=== PATIENT | female | born 1995 | race Caucasian/White ===

== ENCOUNTER 2017-12-19 01:13 | Emergency (ER) | payer SELFPAY ==
[~2017-12-19] VITALS: Ht 160 cm; Wt 55.6 kg
[2017-12-19] MEDS ORDERED: PERM5CRE11 TOPICAL (01:29)
[2017-12-19] MEDS ORDERED: DIPH25CA PO (01:29)
--- NOTE | 2017-12-19 01:30 | PD ---
HPI Chief Complaint: Itchiness all over Time Seen by Provider: 01:24 Travel History International Travel<30 days: No Contact w/Intl Traveler<30days: No Traveled to known affect area: No History of Present Illness HPI 22-year-old female patient presents to the ER today, states that she started having several days of itchiness and which she thinks there are bugs on her clothes, states that her fianc had similar symptoms as well after he used a clipper which was in the session. They are not sure what is going on for think it is scabies. They deny any other issues. Modifying Factors: None Associated Signs & Symptoms: Itchiness all over, possible scabies Risk Factors: None PFSH Social History Tobacco Use: Yes Review of Systems Except as stated in HPI: all other systems reviewed are Neg Physical Exam Narrative GENERAL: Well-developed young female patient currently in no acute distress. Awake and oriented 3. SKIN: Focused skin assessment warm/dry. Excoriated diffuse rash on the trunk, arms, hands. HEAD: Atraumatic. Normocephalic. EYES: Pupils equal and round. No scleral icterus. No injection or drainage. ENT: No nasal bleeding or discharge. Mucous membranes pink and moist. NECK: Trachea midline. No JVD. CARDIOVASCULAR: Regular rate and rhythm. No murmur appreciated. RESPIRATORY: No accessory muscle use. Clear to auscultation. Breath sounds equal bilaterally. GASTROINTESTINAL: Abdomen soft, non-tender, nondistended. Hepatic and splenic margins not palpable. MUSCULOSKELETAL: No obvious deformities. No clubbing. No cyanosis. No edema. NEUROLOGICAL: Awake and alert. No obvious cranial nerve deficits. Motor grossly within normal limits. Normal speech. PSYCHIATRIC: Appropriate mood and affect; insight and judgment normal. Data Data Orders Orders Ed Urine Pregnancytest Poc (12/19/17 01:24) [facility] Medical Decision Making Medical Screen Exam Complete: Yes Emergency Medical Condition: Yes Medical Record Reviewed: Yes Differential Diagnosis Rash, itchiness, possible scabies Narrative Course My plan would be to treat that for possible scabies and have him follow-up as necessary with primary care doctor. Return for new issues as needed. Diagnosis Primary Impression: Scabies Med/Other Pt SpecificInfo: Prescription(s) given Scripts Diphenhydramine (Diphenhydramine) 25 Mg Cap 25 MG PO Q6H Y for ITCHING, #20 CAP 0 Refills Prov: More Tillman MD 12/19/17 Permethrin Topical (Elimite Topical) 5% Cream 1 APPLIC TOPICAL ONCE for Scabies, #1 TUBE 0 Refills Prov: More Tillman MD 12/19/17 Disposition: 01 DISCHARGE HOME Condition: Stable More Tillman MD Dec 19, 2017 01:30
[2017-12-19 01:39] VITALS: BP 140/89; PULSE 120; RESP 18; TEMP 98.6; O2SAT 99
== END 2017-12-19 01:56 | disposition home or self-care (01) ==
LOC: PHED 01:13
DX: B86 Scabies (principal)
CPT/HCPCS: 84703; 99283

== ENCOUNTER 2018-01-14 05:26 | Emergency (ER) | payer SELFPAY ==
[~2018-01-14] VITALS: Ht 160 cm; Wt 56.0 kg
[~2018-01-14 05:26] MED LIST: DIPH25CA PO; PERM5CRE11 TOPICAL
[2018-01-14 05:34] VITALS: BP 105/60; PULSE 102; RESP 18; TEMP 98.1; O2SAT 99
== END 2018-01-14 05:39 | disposition left against medical advice (07) ==
LOC: PHED 05:26
DX: R05 Cough (principal)
CPT/HCPCS: 99281

== ENCOUNTER 2018-10-09 16:56 | Inpatient (IN) ==
[2018-10-09] MEDS ORDERED: Vancomycin Inj 1,000 MG in Sodium Chlor 0.9% Inj 250 ML IV.SIG ONE (17:38)
--- NOTE | 2018-10-09 17:38 | ED ---
HPI General Chief complaint: Skin/Abscess/Foreign Body Stated complaint: rt hand swelling Time Seen by Provider: 10/09/18 17:13 History of Present Illness HPI narrative: The patient was seen and examined in the presence of the nurse. This patient is 33 weeks dated by ultrasound. She also injects IV Subutex. She injected in her right wrist 3 days ago. Describes becoming more swollen and painful around the right thumb. Denies fever or drainage. Symptom severity is moderate. Is worse when she moves her thumb. No alleviating factors. Duration of symptoms 2 days Related Data Home Medications Medication Instructions Recorded Confirmed [id number] fumarate-FA 1 tab PO HS 10/09/18 10/09/18 [] buprenorphine HCl 8 mg SUBLINGUAL TID 10/09/18 10/09/18 escitalopram oxalate [Lexapro] 10 mg PO HS 10/09/18 10/09/18 ferrous sulfate [iron] 325 mg PO HS 10/09/18 10/09/18 Allergies Allergy/AdvReac Type Severity Reaction Status Date / Time No Known Allergies Allergy Verified 10/09/18 17:02 Review of Systems ROS: all other systems reviewed are negative [facility] Social History Social History Substance History: Past History Smoking Status: Current every day smoker Tobacco Type: Cigarettes How Often Do You Have a Drink Containing Alcohol: Never Immunization History Tetanus Immunization: Unsure Exam Narrative Exam Narrative: GENERAL: Well-nourished, well-developed patient in no apparent distress. SKIN: Focused skin assessment reveals no rash and nodules. Skin is Warm and dry. HEAD: Atraumatic. Normocephalic. EYES: Pupils equal and round. No scleral icterus. No injection or drainage. ENT: No nasal bleeding or discharge. Mucous membranes pink and moist. NECK: Trachea midline. No JVD. CARDIOVASCULAR: Regular rate and rhythm. No murmur appreciated. RESPIRATORY: No accessory muscle use. Clear to auscultation. Breath sounds equal bilaterally. GASTROINTESTINAL: Abdomen soft, non-tender, nondistended. Hepatic and splenic margins not palpable. Gravid uterus is nontender MUSCULOSKELETAL: There is some swelling about the right thenar eminence. There is no erythema or warmth. It is tender. She has pain with passive and active flexion and extension of the thumb. there are track erazo in the right hand and wrist. No clubbing. No cyanosis. No edema. NEUROLOGICAL: Awake and alert. No obvious cranial nerve deficits. Motor grossly within normal limits. Normal speech. PSYCHIATRIC: Appropriate mood and affect; insight and judgment poor. Course Initial Documented Vital Signs Temperature 97.8 F 10/09/18 17:00 Pulse Rate 83 10/09/18 17:00 Respiratory Rate 16 18 17:00 Blood Pressure 119/68 10/09/18 17:00 Pulse Oximetry 99 10/09/18 17:00 Last Documented Vital Signs Temperature 97.8 F 10/09/18 17:00 Pulse Rate 83 10/09/18 17:00 Respiratory Rate 16 10/09/18 17:00 Blood Pressure 119/68 10/09/18 17:00 Pulse Oximetry 99 10/09/18 17:00 Medical Decision Making MDM Narrative Medical decision making narrative: 23-year-old female injecting IV drugs and . She is developed infection in the right hand. I placed a left external jugular IV. Giving her 1 g IV vancomycin and sending labs. Labs are reviewed. Minor leukocytosis noted. I discussed with hand surgeon. He recommends transfer to the main hospital. He will evaluate for surgical need. Recommends adding Zosyn to the vancomycin. I placed a call to the hospitalist to discuss I did a bedside transabdominal ultrasound which reveals intrauterine with good movement of the fetus and normal heart rate Medical Screen Exam Complete: Yes Emergency Medical Condition: Yes Lab Data Result diagrams: 10/09/18 17:31 10/09/18 17:31 Lab Results 10/09/18 10/09/18 Range/Units 17:31 17:31 CBC w Diff Auto diff final WBC 12.6 H (4.0-11.0) th/mm3 RBC 4.01 (4.00-5.30) mil/mm3 Hgb 13.1 (11.6-15.3) gm/dL Hct 37.7 (35.0-46.0) % MCV 94.2 (80.0-100.0) fL MCH 32.6 (27.0-34.0) pg MCHC 34.6 (32.0-36.0) % RDW 12.9 (11.6-17.2) % Plt Count 162 (150-450) th/mm3 MPV 9.7 (7.0-11.0) fL Neut % (Auto) 76.4 H (16.0-70.0) % Lymph % (Auto) 17.1 (9.0-44.0) % [place] % (Auto) 4.7 (0.0-8.0) % Eos % (Auto) 0.9 (0.0-4.0) % Baso % (Auto) 0.9 (0.0-2.0) % Neut # (Auto) 9.6 H (1.8-7.7) th/mm3 Lymph # (Auto) 2.2 (1.0-4.8) th/mm3 [place] # (Auto) 0.6 (0.0-0.9) th/mm3 Eos # (Auto) 0.1 (0.0-0.4) th/mm3 Baso # (Auto) 0.1 (0.0-0.2) th/mm3 WBC Differential . Differential Comment . Sodium 137 (136-145) meq/L Potassium 3.6 (3.5-5.1) meq/L Chloride 104 (98-107) meq/L Carbon Dioxide 25.4 (21.0-32.0) meq/L Anion Gap 8 (5-15) meq/L BUN 9 (7-18) mg/dL Creatinine 0.52 (0.50-1.00) mg/dL Estimated GFR Greater than 89 (>89) mL/min Random Glucose 111 H (74-106) mg/dL Calcium 8.5 (8.5-10.1) mg/dL Total Bilirubin 0.2 (0.2-1.0) mg/dL AST 36 (15-37) U/L ALT 38 (10-53) U/L Alkaline Phosphatase 168 H (45-117) U/L Total Protein 7.3 (6.4-8.2) g/dL Albumin 2.6 L (3.4-5.0) g/dL Discharge Plan Discharge Disposition Patient Disposition: ED Admit(ED Internal Use Only) Discharge Order Discharge Orders: ED Use Only Admit Order (Routine); Ordered 10/09/18 Ordered By: Nicolas Gill Discharge Details Diagnosis: Infection of right hand, IVDA (intravenous drug abuse) complicating Physicians Team ED Provider: Nicolas Gill Primary Care Provider: UNKNOWN, Rxs /Orders / Referrals /Forms Prescriptions: No Action buprenorphine HCl 8 mg Tablet, Sublingual 8 mg SUBLINGUAL TID RF: 0 ferrous sulfate [iron] 325 mg (65 mg iron) Tablet 325 mg PO HS RF: 0 escitalopram oxalate [Lexapro] 10 mg Tablet 10 mg PO HS RF: 0 [id number] fumarate-FA [] 28-800 mg-mcg Tablet 1 tab PO HS RF: 0 Status ED Status: With Doctor
[2018-10-09 17:43] LABS: Baso # (Auto) 0.1 th/mm3 (0.0-0.2); Baso % (Auto) 0.9 % (0.0-2.0); Eos # (Auto) 0.1 th/mm3 (0.0-0.4); Eos % (Auto) 0.9 % (0.0-4.0); Hematocrit 37.7 % (35.0-46.0); Hemoglobin 13.1 gm/dL (11.6-15.3); Lymph # (Auto) 2.2 th/mm3 (1.0-4.8); Lymph % (Auto) 17.1 % (9.0-44.0); Mean Corpuscular HGB Conc 34.6 % (32.0-36.0); Mean Corpuscular Hemoglobin 32.6 pg (27.0-34.0); Mean Corpuscular Volume 94.2 fL (80.0-100.0); Mean Platelet Volume 9.7 fL (7.0-11.0); Mono # (Auto) 0.6 th/mm3 (0.0-0.9); Mono % (Auto) 4.7 % (0.0-8.0); Neut # (Auto) 9.6 th/mm3 (1.8-7.7); Neut % (Auto) 76.4 % (16.0-70.0); Platelet Count 162 th/mm3 (150-450); Red Blood Count 4.01 mil/mm3 (4.00-5.30); Red Cell Distribution Width 12.9 % (11.6-17.2); White Blood Count 12.6 th/mm3 (4.0-11.0)
[2018-10-09 17:50] LABS: Chloride 104 meq/L (98-107); Potassium 3.6 meq/L (3.5-5.1); Sodium 137 meq/L (136-145)
[2018-10-09 17:55] LABS: Calcium 8.5 mg/dL (8.5-10.1)
[2018-10-09 17:56] LABS: Albumin 2.6 g/dL (3.4-5.0); Anion Gap 8 meq/L (5-15); Blood Urea Nitrogen 9 mg/dL (7-18); Carbon Dioxide 25.4 meq/L (21.0-32.0); Glucose,Random 111 mg/dL (74-106)
[2018-10-09 17:59] LABS: Alanine Aminotransferase 38 U/L (10-53); Aspartate Aminotransferase 36 U/L (15-37); Glomerular Filtration Rate Greater Than 89 mL/min (>89)
[2018-10-09 18:00] LABS: Total Protein 7.3 g/dL (6.4-8.2)
[2018-10-09 18:02] LABS: Alkaline Phosphatase 168 U/L (45-117)
[2018-10-09] MEDS ORDERED: Acetaminophen 500 MG Tablet PO ONE (18:25)
[2018-10-10] MEDS ORDERED: Vancomycin Consult Pharmacy OTHER PRN (00:23)
[2018-10-10] MEDS ORDERED: Piperacil/Tazo 3.375 GM Premix 3.375 GM/50 ML PIGGYBACK IV.SIG SCH (00:29)
[2018-10-10 01:35] LABS: Bilirubin,Urine Negative (Negative); Clarity,Urine Slightly Cloudy (Clear); Color,Urine Yellow (Yellw/Straw); Glucose,Urine (UA) Negative (Negative); Leukocyte Esterase,Urine Negative (Negative); Nitrite,Urine Negative (Negative); PH,Urine 6.5 (5.0-8.5); Urobilinogen,Urine 0.2 mg/dL (Less than 2)
[2018-10-10 01:41] LABS: Bacteria,Urine Few /hpf; RBC,Urine 0-3 /hpf (0-3); Squamous Epithelial Cell,Urine Greater than 10 /hpf (0-5); WBC,Urine 0-5 /hpf (0-5)
[2018-10-10 01:45] LABS: Barbiturate Screen,Urine Neg (Neg); Cannabinoid Screen,Urine Neg (Neg); Cocaine Screen,Urine Neg (Neg)
[2018-10-10 01:46] LABS: Amphetamine Screen,Urine Neg (Neg)
[2018-10-10 01:50] LABS: Opiate Screen,Urine Neg (Neg)
[2018-10-10] MEDS: Piperacil/Tazo 3.375 GM Premix 3.375 GM/50 ML PIGGYBACK IV.SIG SCH ×4 (01:57→20:47)
[2018-10-10] MEDS ORDERED: Vancomycin Inj 1,200 MG in Sodium Chlor 0.9% Inj 250 ML IV.SIG SCH (06:00)
[2018-10-10] MEDS: Acetaminophen 325 MG Tablet PO PRN ×2 (06:25→11:09)
[2018-10-10 06:41] LABS: Baso # (Auto) 0.1 th/mm3 (0.0-0.2); Eos # (Auto) 0.1 th/mm3 (0.0-0.4); Eos % (Auto) 0.6 % (0.0-4.0); Hematocrit 38.3 % (35.0-46.0); Hemoglobin 12.9 gm/dL (11.6-15.3); Lymph # (Auto) 2.4 th/mm3 (1.0-4.8); Lymph % (Auto) 16.9 % (9.0-44.0); Mean Corpuscular HGB Conc 33.8 % (32.0-36.0); Mean Corpuscular Hemoglobin 31.9 pg (27.0-34.0); Mean Corpuscular Volume 94.3 fL (80.0-100.0); Mean Platelet Volume 11.2 fL (7.0-11.0); Mono # (Auto) 0.7 th/mm3 (0.0-0.9); Mono % (Auto) 4.6 % (0.0-8.0); Neut # (Auto) 11.2 th/mm3 (1.8-7.7); Neut % (Auto) 76.9 % (16.0-70.0); Platelet Count 176 th/mm3 (150-450); Red Blood Count 4.06 mil/mm3 (4.00-5.30); Red Cell Distribution Width 12.7 % (11.6-17.2); White Blood Count 14.5 th/mm3 (4.0-11.0)
[2018-10-10 06:54] LABS: Chloride 104 meq/L (98-107); Potassium 3.6 meq/L (3.5-5.1); Sodium 137 meq/L (136-145)
[2018-10-10 06:56] LABS: Calcium 8.5 mg/dL (8.5-10.1)
[2018-10-10 06:57] LABS: Anion Gap 10 meq/L (5-15); Blood Urea Nitrogen 8 mg/dL (7-18); Carbon Dioxide 23.4 meq/L (21.0-32.0); Glucose,Random 67 mg/dL (74-106)
[2018-10-10 07:00] LABS: Glomerular Filtration Rate Greater Than 89 mL/min (>89)
--- NOTE | 2018-10-10 07:39 | P.CON ---
History of Present Illness Service: obstetrics Consult date: 10/10/18 Reason for Consult: at 33 weeks with hand infection due to IVDA Primary Care Provider: UNKNOWN History of Present Illness: Chart reviewed and patient discussed with her nurse and forwarder operator at [place]. She is being scheduled for aspiration/lancing of right thumb for infection and will then need evaluation. That will need to occur at [facility] in [facility] and there we can address obstetrical and Opioid disorder issues. Will assess patient in person when she comes to the [facility]. [facility] - History History Provided By: Patient - Medical History Medical History: Medical History (Last Reviewed 10/10/18 @ 07:24 by SONIA Merida) History of intravenous drug abuse Patient denies medical problems - Surgical History Surgical History: Surgical History (Last Reviewed 10/10/18 @ 07:24 by SONIA Merida) No history of previous surgery - Family History Family History: Family History (Last Updated 10/10/18 @ 07:24 by SONIA Merida) Mother Family history of cancer - Tobacco History Second Hand Smoke Exposure: Yes Tobacco Use In Past 30 Days: Yes Smoking Status: Current every day smoker Tobacco Type: Cigarettes - Alcohol History How Often Do You Have a Drink Containing Alcohol: Never - Substance Use History Substance History: Active Abuse - Substance Use Type Other Status: Active Route Used: Intravenously Frequency: 8mg T.I.D, PO by perscription and 8mg QD IV - Travel History Recent Travel in the [place] Within the Last 8 Weeks: No Recent Travel Out of the Country Within the Last 8 Weeks: No - Immunization History Tetanus Immunization: Unsure Hx Influenza Vaccine This Season: No Medications and Allergies Active Medications: Active Medications Acetaminophen (Tylenol) 650 mg PO Q4H PRN PRN Reason: Temp > 100.4 Last Admin: 10/10/18 06:25 Dose: 650 mg Vancomycin HCl 1,200 mg/ (Sodium Chloride) 262 mls @ 250 mls/hr IV.SIG Q12H JACOB Last Admin: 10/10/18 06:19 Dose: 250 mls/hr Piperacillin/Tazobactam/Dextrose (Zosyn 3.375 Gm Premix) 3.375 gm in 50 mls @ 100 mls/hr IV.SIG Q6H JACOB Last Infusion: 10/10/18 02:57 Dose: Infused Miscellaneous Information ([facility] Ordered Lab Info) 0 each OTHER DAILY@ 1745 [facility] Stop: 10/11/18 20:00 Pharmacy Profile Note (Vancomycin Consult Pharmacy) 1 each OTHER UNSCH PRN PRN Reason: Pharmacy to dose Allergies Allergy/AdvReac Type Severity Reaction Status Date / Time No Known Allergies Allergy Verified 10/09/18 17:02 Home Medications Medication Instructions Recorded Confirmed Type [id number] fumarate-FA 1 tab PO HS 10/09/18 10/09/18 History [] buprenorphine HCl 8 mg SUBLINGUAL TID 10/09/18 10/09/18 History escitalopram oxalate [Lexapro] 10 mg PO HS 10/09/18 10/09/18 History ferrous sulfate [iron] 325 mg PO HS 10/09/18 10/09/18 History Physical Exam Vital signs: Vital Signs 10/09/18 17:00 10/09/18 20:50 10/10/18 00:00 Temperature 97.8 F 97.5 F L Pulse Rate 83 80 76 Respiratory Rate 16 20 18 Blood Pressure 119/68 122/70 127/66 Pulse Oximetry 99 99 98 Intake & Output 10/09/18 10/10/18 10/10/18 18:59 06:59 18:59 Intake Total 665 / 665 Balance 665 / 665 Weight 64 kg 63 kg Intake: IV 300 / 300 Zosyn 3.375 GM Premix 3.375 gm 50 / 50 In 50 ml @ 100 mls/hr IV.SIG Q6H [facility] Rx#:[id number] Vancomycin Inj 1,000 MG In NS 250 / 250 Inj 250 ML @ 250 mls/hr IV.SIG ONCE ONE Rx#:[id number] Oral 365 / 365 Other: # Voids 2 Weight On Admission 64.4 kg Results - Labs CBC & Chem 7: 10/10/18 05:20 10/10/18 05:20 Labs: Laboratory Results - last 24 hr 10/09/18 10/09/18 10/10/18 17:31 17:31 00:00 CBC w Diff Auto diff final WBC 12.6 H RBC 4.01 Hgb 13.1 Hct 37.7 MCV 94.2 MCH 32.6 MCHC 34.6 RDW 12.9 Plt Count 162 MPV 9.7 Neut % (Auto) 76.4 H Lymph % (Auto) 17.1 [place] % (Auto) 4.7 Eos % (Auto) 0.9 Baso % (Auto) 0.9 Neut # (Auto) 9.6 H Lymph # (Auto) 2.2 [place] # (Auto) 0.6 Eos # (Auto) 0.1 Baso # (Auto) 0.1 WBC Differential . Differential Comment . Sodium 137 Potassium 3.6 Chloride 104 Carbon Dioxide 25.4 Anion Gap 8 BUN 9 Creatinine 0.52 Estimated GFR Greater than 89 Random Glucose 111 H Calcium 8.5 Total Bilirubin 0.2 AST 36 ALT 38 Alkaline Phosphatase 168 H Total Protein 7.3 Albumin 2.6 L Urine Color Yellow Urine Clarity Slightly cloudy Urine pH 6.5 Ur Specific [place] 1.020 Urine Protein Negative Urine Glucose (UA) Negative Urine Ketones Trace H Urine Occult Blood Negative Urine Nitrate Negative Urine Bilirubin Negative Urine Urobilinogen 0.2 Ur Leukocyte Esterase Negative Urine RBC 0-3 Urine WBC 0-5 Ur Squamous Epith Cells Greater than 10 H Urine Bacteria Few H Micro UA Comment Culture not ind Ur Microscopic Review Microscopic reviewed Urine Culture Comments Culture not ind Urine Opiates Screen Ur Barbiturates Screen Ur Amphetamines Screen U Benzodiazepines Scrn Urine Cocaine Screen U Cannabinoids Screen 10/10/18 10/10/18 10/10/18 00:00 05:20 05:20 CBC w Diff Auto diff final WBC 14.5 H RBC 4.06 Hgb 12.9 Hct 38.3 MCV 94.3 MCH 31.9 MCHC 33.8 RDW 12.7 Plt Count 176 MPV 11.2 H Neut % (Auto) 76.9 H Lymph % (Auto) 16.9 [place] % (Auto) 4.6 Eos % (Auto) 0.6 Baso % (Auto) 1.0 Neut # (Auto) 11.2 H Lymph # (Auto) 2.4 [place] # (Auto) 0.7 Eos # (Auto) 0.1 Baso # (Auto) 0.1 WBC Differential . Differential Comment . Sodium 137 Potassium 3.6 Chloride 104 Carbon Dioxide 23.4 Anion Gap 10 BUN 8 Creatinine 0.38 L Estimated GFR Greater than 89 Random Glucose 67 L Calcium 8.5 Total Bilirubin AST ALT Alkaline Phosphatase Total Protein Albumin Urine Color Urine Clarity Urine pH Ur Specific [place] Urine Protein Urine Glucose (UA) Urine Ketones Urine Occult Blood Urine Nitrate Urine Bilirubin Urine Urobilinogen Ur Leukocyte Esterase Urine RBC Urine WBC Ur Squamous Epith Cells Urine Bacteria Micro UA Comment Ur Microscopic Review Urine Culture Comments Urine Opiates Screen Neg Ur Barbiturates Screen Neg Ur Amphetamines Screen Neg U Benzodiazepines Scrn Neg Urine Cocaine Screen Neg U Cannabinoids Screen Neg
--- NOTE | 2018-10-10 07:48 | P.HP ---
History of Present Illness Primary Care Physician: UNKNOWN Chief Complaint: Right hand pain History of Present Illness: 23-year-old female with known , history of IV drug use, depression who presented to hospital because of right hand pain. Patient states that she is undergoing outpatient treatment for drug addiction along with Subutex 8 mg 3 times daily. Patient does have a history of IV heroin use. She has been injecting her Subutex on a daily basis up until 3 days ago when she started developing pain in her right hand which progressively got worse so she came to the emergency department yesterday. Patient was found to have edema , erythema in the injected area and it was recommended by the ER physician the patient be admitted the hospital for further evaluation and management. Patient denies any fever, chills. Patient only complaint is right hand pain. Patient is and is following a [employer] in outpatient setting up in [facility] However she states that that physician is not doing her OB. She was told that she would have to go to [place] for the delivery. Patient is currently laying in bed, still the only complaint is the right hand pain. No obvious signs of any withdrawal at this time. - Diagnosis (1) Infection of right hand (2) IVDA (intravenous drug abuse) complicating Inpatient Certification: I certify that the inpatient services were ordered in accordance with Medicare regulations governing the order. This includes certification that hospital inpatient services are reasonable and necessary and in the case of services not specified as inpatient-only under 42 CFR 419.22(n), that they are appropriately provided as inpatient services in accordance to with the 2-midnight benchmark under 43 CFR 412.3(e) Estimated Total Length of Stay (Days): 2 Plans for Post Hospital Care: Home Review of Systems All other systems reviewed negative except as stated in HPI Musculoskeletal: Reports joint pain PMFSH - History History Provided By: Patient - Medical History Medical History: Medical History (Last Reviewed 10/10/18 @ 07:24 by SONIA Merida) History of intravenous drug abuse Patient denies medical problems - Surgical History Surgical History: Surgical History (Last Reviewed 10/10/18 @ 07:24 by SONIA Merida) No history of previous surgery - Family History Family History: Family History (Last Updated 10/10/18 @ 07:24 by SONIA Merida) Mother Family history of cancer - Tobacco History Second Hand Smoke Exposure: Yes Tobacco Use In Past 30 Days: Yes Smoking Status: Current every day smoker Tobacco Type: Cigarettes Cigarettes Per Day: 0.5 - Alcohol History How Often Do You Have a Drink Containing Alcohol: Never - Substance Use History Substance History: Active Abuse - Substance Use Type Other Status: Active Route Used: Intravenously Frequency: 8mg T.I.D, PO by perscription and 8mg QD IV Crack/Cocaine Status: Active Route Used: Intravenously - Travel History Recent Travel in the [place] Within the Last 8 Weeks: No Recent Travel Out of the Country Within the Last 8 Weeks: No - Immunization History Tetanus Immunization: Unsure Hx Influenza Vaccine This Season: No Medications and Allergies Active Medications: Active Medications Acetaminophen (Tylenol) 650 mg PO Q4H PRN PRN Reason: Temp > 100.4 Last Admin: 10/10/18 06:25 Dose: 650 mg Vancomycin HCl 1,200 mg/ (Sodium Chloride) 262 mls @ 250 mls/hr IV.SIG Q12H [facility] Last Admin: 10/10/18 06:19 Dose: 250 mls/hr Piperacillin/Tazobactam/Dextrose (Zosyn 3.375 Gm Premix) 3.375 gm in 50 mls @ 100 mls/hr IV.SIG Q6H JAC[facility] Last Infusion: 10/10/18 02:57 Dose: Infused Miscellaneous Information ([facility] Ordered Lab Info) 0 each OTHER DAILY@ 1745 [facility] Stop: 10/11/18 20:00 Pharmacy Profile Note (Vancomycin Consult Pharmacy) 1 each OTHER UNSCH PRN PRN Reason: Pharmacy to dose Allergies Allergy/AdvReac Type Severity Reaction Status Date / Time No Known Allergies Allergy Verified 10/09/18 17:02 Home Medications Medication Instructions Recorded Confirmed Type [id number] fumarate-FA 1 tab PO HS 10/09/18 10/09/18 History [] buprenorphine HCl 8 mg SUBLINGUAL TID 10/09/18 10/09/18 History escitalopram oxalate [Lexapro] 10 mg PO HS 10/09/18 10/09/18 History ferrous sulfate [iron] 325 mg PO HS 10/09/18 10/09/18 History Exam Vital signs: Vital Signs 10/09/18 17:00 10/09/18 20:50 10/10/18 00:00 Temperature 97.8 F 97.5 F L Pulse Rate 83 80 76 Respiratory Rate 16 20 18 Blood Pressure 119/68 122/70 127/66 Pulse Oximetry 99 99 98 Intake & Output 10/09/18 10/10/18 10/10/18 18:59 06:59 18:59 Intake Total 665 / 665 Balance 665 / 665 Weight 64 kg 63 kg Intake: IV 300 / 300 Zosyn 3.375 GM Premix 3.375 gm 50 / 50 In 50 ml @ 100 mls/hr IV.SIG Q6H JAC[facility] Rx#:[id number] Vancomycin Inj 1,000 MG In NS 250 / 250 Inj 250 ML @ 250 mls/hr IV.SIG ONCE ONE Rx#:[id number] Oral 365 / 365 Other: # Voids 2 Weight On Admission 64.4 kg Narrative: GENERAL: Well-developed, well-nourished, in no acute distress. alert and orientated HEENT: Head is normocephalic without any lesions or masses noted. Facial features are symmetric. Eyes: Pupils equal round reactive to light. Extraocular muscles are intact. Conjunctivae were clear. Oropharyngeal: Pharynx without any erythema edema. Tongue is midline without deviation. Buccal mucosa is moist without any masses or lesions NECK: Supple without any masses. Trachea midline no deviation. No JVD, no bruits are appreciated CARDIAC: Regular rhythm, regular rate. S1/S2 are heard. No murmurs gallops or rubs. LUNGS: Clear to auscultation bilaterally. No wheeze, rhonchi or rales. No use of accessory muscles on inspiration or expiration. ABDOMEN: Soft, nontender. Nondistended. Bowel sounds heard in all 4 quadrants. No organomegaly or masses. Negative rebound, negative guarding EXTREMITIES: No edema, pulses are equal bilaterally. No cyanosis or clubbing NEUROLOGY: Mood and affect appear appropriate. Cranial nerves II through XII grossly intact. Muscle strength 5/5 in upper and lower extremities bilaterally. Deep tendon reflexes are 2+ in upper and lower extremities bilaterally. RIGHT HAND: There is some mild edema noted to the right hand, mainly in the right thenar region. At the lateral wrist there are multiple injection sites with erythema measuring approximately 2 cm. No obvious exudates, purulence, abscess. Results - Labs CBC & Chem 7: 10/10/18 05:20 10/10/18 05:20 Labs: Laboratory Results - last 24 hr 10/09/18 10/09/18 10/10/18 17:31 17:31 00:00 CBC w Diff Auto diff final WBC 12.6 H RBC 4.01 Hgb 13.1 Hct 37.7 MCV 94.2 MCH 32.6 MCHC 34.6 RDW 12.9 Plt Count 162 MPV 9.7 Neut % (Auto) 76.4 H Lymph % (Auto) 17.1 [place] % (Auto) 4.7 Eos % (Auto) 0.9 Baso % (Auto) 0.9 Neut # (Auto) 9.6 H Lymph # (Auto) 2.2 [place] # (Auto) 0.6 Eos # (Auto) 0.1 Baso # (Auto) 0.1 WBC Differential . Differential Comment . Sodium 137 Potassium 3.6 Chloride 104 Carbon Dioxide 25.4 Anion Gap 8 BUN 9 Creatinine 0.52 Estimated GFR Greater than 89 Random Glucose 111 H Calcium 8.5 Total Bilirubin 0.2 AST 36 ALT 38 Alkaline Phosphatase 168 H Total Protein 7.3 Albumin 2.6 L Urine Color Yellow Urine Clarity Slightly cloudy Urine pH 6.5 Ur Specific [place] 1.020 Urine Protein Negative Urine Glucose (UA) Negative Urine Ketones Trace H Urine Occult Blood Negative Urine Nitrate Negative Urine Bilirubin Negative Urine Urobilinogen 0.2 Ur Leukocyte Esterase Negative Urine RBC 0-3 Urine WBC 0-5 Ur Squamous Epith Cells Greater than 10 H Urine Bacteria Few H Micro UA Comment Culture not ind Ur Microscopic Review Microscopic reviewed Urine Culture Comments Culture not ind Urine Opiates Screen Ur Barbiturates Screen Ur Amphetamines Screen U Benzodiazepines Scrn Urine Cocaine Screen U Cannabinoids Screen 10/10/18 10/10/18 10/10/18 00:00 05:20 05:20 CBC w Diff Auto diff final WBC 14.5 H RBC 4.06 Hgb 12.9 Hct 38.3 MCV 94.3 MCH 31.9 MCHC 33.8 RDW 12.7 Plt Count 176 MPV 11.2 H Neut % (Auto) 76.9 H Lymph % (Auto) 16.9 [place] % (Auto) 4.6 Eos % (Auto) 0.6 Baso % (Auto) 1.0 Neut # (Auto) 11.2 H Lymph # (Auto) 2.4 [place] # (Auto) 0.7 Eos # (Auto) 0.1 Baso # (Auto) 0.1 WBC Differential . Differential Comment . Sodium 137 Potassium 3.6 Chloride 104 Carbon Dioxide 23.4 Anion Gap 10 BUN 8 Creatinine 0.38 L Estimated GFR Greater than 89 Random Glucose 67 L Calcium 8.5 Total Bilirubin AST ALT Alkaline Phosphatase Total Protein Albumin Urine Color Urine Clarity Urine pH Ur Specific [place] Urine Protein Urine Glucose (UA) Urine Ketones Urine Occult Blood Urine Nitrate Urine Bilirubin Urine Urobilinogen Ur Leukocyte Esterase Urine RBC Urine WBC Ur Squamous Epith Cells Urine Bacteria Micro UA Comment Ur Microscopic Review Urine Culture Comments Urine Opiates Screen Neg Ur Barbiturates Screen Neg Ur Amphetamines Screen Neg U Benzodiazepines Scrn Neg Urine Cocaine Screen Neg U Cannabinoids Screen Neg Caprini VTE Risk Assessment Caprini VTE Risk Assessment: No/Low Risk (score <= 1) Caprini Risk Assessment Model: Point Value = 1 Point Value = 2 Point Value = 3 Point Value = 5 Age 41-60 Minor surgery BMI > 25 kg/m2 Swollen legs Varicose veins or History of unexplained or recurrent spontaneous Oral contraceptives or hormone replacement Sepsis (< 1 month) Serious lung disease, including pneumonia (< 1 month) Abnormal pulmonary function Acute myocardial infarction Congestive heart failure (< 1 month) History of inflammatory bowel disease Medical patient at bed rest Age 61-74 Arthroscopic surgery Major open surgery (> 45 min) Laparoscopic surgery (> 45 min) Malignancy Confined to bed (> 72 hours) Immobilizing plaster cast Central venous access Age >= 75 History of VTE Family history of VTE Factor V Leiden Prothrombin [id number] Lupus anticoagulant Anticardiolipin antibodies Elevated serum homocysteine Heparin-induced thrombocytopenia Other congenital or acquired thrombophilia Stroke (< 1 month) Elective arthroplasty Hip, pelvis, or leg fracture Acute spinal cord injury (< 1 month) Prophylaxis Regimen: Total Risk Factor Score Risk Level Prophylaxis Regimen 0-1 Low Early ambulation 2 Moderate Order ONE of the following: *Sequential Compression Device (SCD) *Heparin 5000 units SQ BID 3-4 Higher Order ONE of the following medications: *Heparin 5000 units SQ TID *Enoxaparin/Lovenox 40 mg SQ daily (WT < 150 kg, CrCl > 30 mL/min) *Enoxaparin/Lovenox 30 mg SQ daily (WT < 150 kg, CrCl > 10-29 mL/min) *Enoxaparin/Lovenox 30 mg SQ BID (WT < 150 kg, CrCl > 30 mL/min) AND/OR *Sequential Compression Device (SCD) 5 or more Highest Order ONE of the following medications: *Heparin 5000 units SQ TID (Preferred with Epidurals) *Enoxaparin/Lovenox 40 mg SQ daily (WT < 150 kg, CrCl > 30 mL/min) *Enoxaparin/Lovenox 30 mg SQ daily (WT < 150 kg, CrCl > 10-29 mL/min) *Enoxaparin/Lovenox 30 mg SQ BID (WT < 150 kg, CrCl > 30 mL/min) AND *Sequential Compression Device (SCD) Assessment and Plan - Assessment (1) Infection of right hand Code(s): L08.9 - Local infection of the skin and subcutaneous tissue, unspecified Status: Acute (2) IVDA (intravenous drug abuse) complicating Code(s): O99.320 - Drug use complicating , unspecified trimester; F19.10 - Other psychoactive substance abuse, uncomplicated Status: Acute - Plan Right wrist, thumb cellulitis with possible tenosynovitis -Patient is an IV drug user and abnormality is noted at injection sites -We will obtain C-reactive protein, sed rate -Patient continued on empirical antibiotics include vancomycin, Zosyn -Hand specialist has been consulted for further recommendations Leukocytosis -Likely secondary to the above infection sepsis -Continue monitor CBC -Patient is followed by [employer] in outpatient setting -OB has been consulted for further recommendations, will be requesting transfer to the main hospital Polysubstance abuse -Patient is undergoing outpatient management with Subutex -Patient counseled on cessation DVT prevention -Sequential compression devices
--- NOTE | 2018-10-10 12:50 | ED ---
History of Present Illness Primary Care Physician: UNKNOWN Chief Complaint: Right hand pain History of Present Illness: HISTORY FROM ED PHYSICIAN: 23-year-old female with known , history of IV drug use, depression who presented to hospital because of right hand pain. Patient states that she is undergoing outpatient treatment for drug addiction along with Subutex 8 mg 3 times daily. Patient does have a history of IV heroin use. She has been injecting her Subutex on a daily basis up until 3 days ago when she started developing pain in her right hand which progressively got worse so she came to the emergency department yesterday. Patient was found to have edema , erythema in the injected area and it was recommended by the ER physician the patient be admitted the hospital for further evaluation and management. Patient denies any fever, chills. Patient only complaint is right hand pain. 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 She was told that she would have to go to [place] for the delivery. Patient is currently laying in bed, still the only complaint is the right hand pain. No obvious signs of any withdrawal at this time. OB History: 23 yo at 33 weeks and 2 days who presents to the [facility] as a transfer from [place] ED for hand infection. The patient is an IVDU and shoots up in the right hand predominantly. She last used IV route 3 days ago. She was under the understanding that she was coming to the [facility] for hand surgery. I called the hand surgeon who was consulted in [place], Dr. Salinas, and he reported that he will see the patient, but that surgery was not scheduled. He would like her placed on a medical floor and continued IV antibiotics with vancomycin and zosyn. The patient is feeling baby move. She denies fluid leakage, vaginal bleeding, or contractions. She reports night sweats, chills. Denies chest pain, palpitations, headaches, RUQ pain, vision changes, SOB, LE edema. PMH: Depression PSH: none Medications: lexapro subutex prenatals iron FH: parents are well No family history of anesthesia problems Social History: Has been using illicit drugs since 15yo. She began her use with marijuana. She started using IV heroin about 1.5-2 years ago. She has been on Subutex even before her . She works as does her partner. She denies tobacco or alcohol use. Weeks Gestation:: 33 Para: 0 - Inpatient Certification I certify that the inpatient services were ordered in accordance with Medicare regulations governing the order. This includes certification that hospital inpatient services are reasonable and necessary and in the case of services not specified as inpatient-only under 42 CFR 419.22(n), that they are appropriately provided as inpatient services in accordance to with the 2-midnight benchmark under 43 CFR 412.3(e) Estimated Total Length of Stay (Days): 2 Plans for Post Hospital Care: Home Review of Systems All other systems reviewed negative except as stated in HPI PMFSH - History History Provided By: Patient - Medical History Medical History: Medical History (Last Reviewed 10/10/18 @ 07:24 by SONIA Merida) History of intravenous drug abuse Patient denies medical problems - Surgical History Surgical History: Surgical History (Last Reviewed 10/10/18 @ 07:24 by SONIA Merida) No history of previous surgery - Family History Family History: Family History (Last Updated 10/10/18 @ 07:24 by SONIA Merida) Mother Family history of cancer - Social History I have reviewed the patient's Social History: Yes - Tobacco History Second Hand Smoke Exposure: Yes Tobacco Use In Past 30 Days: Yes Smoking Status: Current every day smoker Tobacco Type: Cigarettes Cigarettes Per Day: 0.5 - Alcohol History How Often Do You Have a Drink Containing Alcohol: Never - Substance Use History Substance History: Active Abuse - Substance Use Type Other Status: Active Route Used: Intravenously Frequency: 8mg T.I.D, PO by perscription and 8mg QD IV Crack/Cocaine Status: Active Route Used: Intravenously - Travel History Recent Travel in the [place] Within the Last 8 Weeks: No Recent Travel Out of the Country Within the Last 8 Weeks: No - Immunization History Tetanus Immunization: Unsure Hx Influenza Vaccine This Season: No Medications and Allergies Active Medications: Active Medications Acetaminophen (Tylenol) 650 mg PO Q4H PRN PRN Reason: Temp > 100.4 Last Admin: 10/10/18 11:09 Dose: 650 mg Vancomycin HCl 1,200 mg/ (Sodium Chloride) 262 mls @ 250 mls/hr IV.SIG Q12H [facility] Last Infusion: 10/10/18 11:10 Dose: 100 mls/hr Piperacillin/Tazobactam/Dextrose (Zosyn 3.375 Gm Premix) 3.375 gm in 50 mls @ 100 mls/hr IV.SIG Q6H [facility] Last Admin: 10/10/18 11:10 Dose: 100 mls/hr Miscellaneous Information ([facility] Ordered Lab Info) 0 each OTHER DAILY@ 1745 [facility] Stop: 10/11/18 20:00 Pharmacy Profile Note (Vancomycin Consult Pharmacy) 1 each OTHER UNSCH PRN PRN Reason: Pharmacy to dose Allergies Allergy/AdvReac Type Severity Reaction Status Date / Time No Known Allergies Allergy Verified 10/09/18 17:02 Home Medications Medication Instructions Recorded Confirmed Type [id number] fumarate-FA 1 tab PO HS 10/09/18 10/09/18 History [] buprenorphine HCl 8 mg SUBLINGUAL TID 10/09/18 10/09/18 History escitalopram oxalate [Lexapro] 10 mg PO HS 10/09/18 10/09/18 History ferrous sulfate [iron] 325 mg PO HS 10/09/18 10/09/18 History Exam Vital signs: Vital Signs 10/09/18 17:00 10/09/18 20:50 10/10/18 00:00 Temperature 97.8 F 97.5 F L Pulse Rate 83 80 76 Respiratory Rate 16 20 18 Blood Pressure 119/68 122/70 127/66 Pulse Oximetry 99 99 98 10/10/18 08:00 Temperature 97.8 F Pulse Rate 71 Respiratory Rate 20 Blood Pressure 132/63 Pulse Oximetry 98 Intake & Output 10/09/18 10/10/18 10/10/18 18:59 06:59 18:59 Intake Total 665 / 665 0 / 0 Output Total 300 / 300 Balance 665 / 665 -300 / -300 Weight 64 kg 63 kg Intake: IV 300 / 300 Zosyn 3.375 GM Premix 3.375 gm 50 / 50 In 50 ml @ 100 mls/hr IV.SIG Q6H [facility] Rx#:[id number] Vancomycin Inj 1,000 MG In NS 250 / 250 Inj 250 ML @ 250 mls/hr IV.SIG ONCE ONE Rx#:[id number] Oral 365 / 365 0 / 0 Output: Urine 300 / 300 Other: # Voids 2 Weight On Admission 64.4 kg Narrative: GENERAL: visibly uncomfortable SKIN: track erazo on bilateral wrists, no injection erazo between fingers HEAD: Normocephalic and atraumatic. EYES: No scleral icterus. No injection or drainage. ENT: No nasal drainage noted. Mucous membranes pink. Airway patent. NECK: Supple, trachea midline. No JVD. CARDIOVASCULAR: Regular rate and rhythm without murmurs, gallops, or rubs. RESPIRATORY: Breath sounds equal bilaterally. No accessory muscle use. ABDOMEN/GI: Abdomen soft, non-tender, bowel sounds present, no rebound, no guarding Uterine Contractions: minimal FHT's: Category: 1 Baseline: 135 Reactive: yes Variability: moderate Decels: none EXTREMITIES: marked edema on right hand, able to move all fingers but tender to the touch, cap refill WNL NEUROLOGICAL: Awake and alert. Motor and sensory grossly within normal limits. Normal speech. Results - Labs CBC & Chem 7: 10/10/18 05:20 10/10/18 05:20 Labs: Laboratory Results - last 24 hr 10/09/18 10/09/18 10/10/18 17:31 17:31 00:00 CBC w Diff Auto diff final WBC 12.6 H RBC 4.01 Hgb 13.1 Hct 37.7 MCV 94.2 MCH 32.6 MCHC 34.6 RDW 12.9 Plt Count 162 MPV 9.7 Neut % (Auto) 76.4 H Lymph % (Auto) 17.1 [place] % (Auto) 4.7 Eos % (Auto) 0.9 Baso % (Auto) 0.9 Neut # (Auto) 9.6 H Lymph # (Auto) 2.2 [place] # (Auto) 0.6 Eos # (Auto) 0.1 Baso # (Auto) 0.1 WBC Differential . Differential Comment . ESR Sodium 137 Potassium 3.6 Chloride 104 Carbon Dioxide 25.4 Anion Gap 8 BUN 9 Creatinine 0.52 Estimated GFR Greater than 89 Random Glucose 111 H Calcium 8.5 Total Bilirubin 0.2 AST 36 ALT 38 Alkaline Phosphatase 168 H C-Reactive Protein Total Protein 7.3 Albumin 2.6 L Urine Color Yellow Urine Clarity Slightly cloudy Urine pH 6.5 Ur Specific [place] 1.020 Urine Protein Negative Urine Glucose (UA) Negative Urine Ketones Trace H Urine Occult Blood Negative Urine Nitrate Negative Urine Bilirubin Negative Urine Urobilinogen 0.2 Ur Leukocyte Esterase Negative Urine RBC 0-3 Urine WBC 0-5 Ur Squamous Epith Cells Greater than 10 H Urine Bacteria Few H Micro UA Comment Culture not ind Ur Microscopic Review Microscopic reviewed Urine Culture Comments Culture not ind Urine Opiates Screen Ur Barbiturates Screen Ur Amphetamines Screen U Benzodiazepines Scrn Urine Cocaine Screen U Cannabinoids Screen 10/10/18 10/10/18 10/10/18 00:00 05:20 05:20 CBC w Diff Auto diff final WBC 14.5 H RBC 4.06 Hgb 12.9 Hct 38.3 MCV 94.3 MCH 31.9 MCHC 33.8 RDW 12.7 Plt Count 176 MPV 11.2 H Neut % (Auto) 76.9 H Lymph % (Auto) 16.9 [place] % (Auto) 4.6 Eos % (Auto) 0.6 Baso % (Auto) 1.0 Neut # (Auto) 11.2 H Lymph # (Auto) 2.4 [place] # (Auto) 0.7 Eos # (Auto) 0.1 Baso # (Auto) 0.1 WBC Differential . Differential Comment . ESR Sodium 137 Potassium 3.6 Chloride 104 Carbon Dioxide 23.4 Anion Gap 10 BUN 8 Creatinine 0.38 L Estimated GFR Greater than 89 Random Glucose 67 L Calcium 8.5 Total Bilirubin AST ALT Alkaline Phosphatase C-Reactive Protein Total Protein Albumin Urine Color Urine Clarity Urine pH Ur Specific [place] Urine Protein Urine Glucose (UA) Urine Ketones Urine Occult Blood Urine Nitrate Urine Bilirubin Urine Urobilinogen Ur Leukocyte Esterase Urine RBC Urine WBC Ur Squamous Epith Cells Urine Bacteria Micro UA Comment Ur Microscopic Review Urine Culture Comments Urine Opiates Screen Neg Ur Barbiturates Screen Neg Ur Amphetamines Screen Neg U Benzodiazepines Scrn Neg Urine Cocaine Screen Neg U Cannabinoids Screen Neg 10/10/18 10/10/18 05:20 05:20 CBC w Diff WBC RBC Hgb Hct MCV MCH MCHC RDW Plt Count MPV Neut % (Auto) Lymph % (Auto) [place] % (Auto) Eos % (Auto) Baso % (Auto) Neut # (Auto) Lymph # (Auto) [place] # (Auto) Eos # (Auto) Baso # (Auto) WBC Differential Differential Comment ESR 50 H Sodium Potassium Chloride Carbon Dioxide Anion Gap BUN Creatinine Estimated GFR Random Glucose Calcium Total Bilirubin AST ALT Alkaline Phosphatase C-Reactive Protein 1.74 H Total Protein Albumin Urine Color Urine Clarity Urine pH Ur Specific [place] Urine Protein Urine Glucose (UA) Urine Ketones Urine Occult Blood Urine Nitrate Urine Bilirubin Urine Urobilinogen Ur Leukocyte Esterase Urine RBC Urine WBC Ur Squamous Epith Cells Urine Bacteria Micro UA Comment Ur Microscopic Review Urine Culture Comments Urine Opiates Screen Ur Barbiturates Screen Ur Amphetamines Screen U Benzodiazepines Scrn Urine Cocaine Screen U Cannabinoids Screen Assessment and Plan - Diagnosis (1) 33 weeks gestation of Code(s): Z3A.33 - 33 weeks gestation of Status: Acute (2) Infection of right hand Code(s): L08.9 - Local infection of the skin and subcutaneous tissue, unspecified Status: Acute (3) IVDA (intravenous drug abuse) complicating Code(s): O99.320 - Drug use complicating , unspecified trimester; F19.10 - Other psychoactive substance abuse, uncomplicated Status: Acute - Plan 23 yo at 33 weeks and 2 days who presents to the [facility] as a transfer from [place] ED for hand infection. FHR 135 baseline with moderate variability. - Cleared from the OB standpoint - Admit to [facility] for IV antibiotic administration - Dr. Salinas, hand surgery, has been consulted by ED and will see the patient. He recommends continuing vanc and zosyn. Discharge Plan - Discharge Disposition Patient Disposition: Transfer To [facility] - Discharge Condition Condition: Stable - Physicians Team Primary Care Provider: UNKNOWN, Attending Provider: Kealyn Leavitt Other Providers: Juancarlos Salinas MD ; Iram Tolliver MD ; [employer], Insurance
[2018-10-10] MEDS ORDERED: Naloxone Inj 0.4 MG/ML Vial IV.PUSH PRN (15:44)
[2018-10-10] MEDS: Vancomycin Inj 1,250 MG in Sodium Chlor 0.9% Inj 250 ML IV.SIG SCH (17:58)
--- NOTE | 2018-10-10 20:15 | P.CON ---
History of Present Illness Service: Hand surgery Consult date: 10/10/18 Reason for Consult: Right thumb pain Primary Care Provider: UNKNOWN Chief Complaint: Right hand pain History of Present Illness: 23-year-old female at 33 weeks gestation who presented to the emergency department yesterday complaining of severe worsening right base of thumb/radial wrist pain. Patient reports that she attempted injecting Subutex to the area 3 days previously. Patient reports pain as sharp and stabbing at the base of the thumb/distal radial wrist. Patient reported worsening edema/erythema in the area. Patient endorses mild decreased sensation to the digits. She endorses severe pain over the thenar eminence, though denies significant pain to the thumb itself. Patient presented to the [place] emergency department where she was given vancomycin and Zosyn, before being transferred to [facility]. Patient reports that her pain is slightly worse from yesterday,, though she was able to sleep following administration of one Wahoo. Except as noted in the HPI review of systems negative to presenting complaint Family history noncontributory to presenting complaint No known drug allergies Social history consistent with narcotic abuse Medication list reviewed (vancomycin/Zosyn) Medical/surgical history Denies PMFSH - History History Provided By: Patient - Medical History Medical History: Medical History (Last Reviewed 10/10/18 @ 07:24 by SONIA Merida) History of intravenous drug abuse Patient denies medical problems - Surgical History Surgical History: Surgical History (Last Reviewed 10/10/18 @ 07:24 by SONIA Merida) No history of previous surgery - Family History Family History: Family History (Last Updated 10/10/18 @ 07:24 by SONIA Merida) Mother Family history of cancer - Tobacco History Second Hand Smoke Exposure: Yes Tobacco Use In Past 30 Days: Yes Smoking Status: Current every day smoker Tobacco Type: Cigarettes Cigarettes Per Day: 0.5 - Alcohol History How Often Do You Have a Drink Containing Alcohol: Never - Substance Use History Substance History: Active Abuse - Substance Use Type Other Status: Active Route Used: Intravenously Frequency: 8mg T.I.D, PO by perscription and 8mg QD IV Crack/Cocaine Status: Active Route Used: Intravenously - Travel History Recent Travel in the [place] Within the Last 8 Weeks: No Recent Travel Out of the Country Within the Last 8 Weeks: No - Immunization History Tetanus Immunization: Unsure Hx Influenza Vaccine This Season: No Medications and Allergies Active Medications: Active Medications Acetaminophen (Tylenol) 650 mg PO Q4H PRN PRN Reason: Temp > 100.4 Last Admin: 10/10/18 11:09 Dose: 650 mg Hydrocodone Bitart/Acetaminophen (Wahoo 7.5/325) 1 tab PO Q4H PRN PRN Reason: PAIN SCALE 6 TO 10 Last Admin: 10/10/18 16:20 Dose: 1 tab Piperacillin/Tazobactam/Dextrose (Zosyn 3.375 Gm Premix) 3.375 gm in 50 mls @ 100 mls/hr IV.SIG Q6H JACOB Last Admin: 10/10/18 16:38 Dose: Not Given Vancomycin HCl 1,250 mg/ (Sodium Chloride) 262.5 mls @ 250 mls/hr IV.SIG Q12H JACOB Last Infusion: 10/10/18 19:01 Dose: Infused Miscellaneous Information ([facility] Ordered Lab Info) 0 each OTHER DAILY@ 2881 [facility] Stop: 10/11/18 20:00 Naloxone HCl (Narcan Inj) 0.4 mg IV.PUSH UNSCH PRN PRN Reason: SEE LABEL COMMENTS Pharmacy Profile Note (Vancomycin Consult Pharmacy) 1 each OTHER UNSCH PRN PRN Reason: Pharmacy to dose Allergies Allergy/AdvReac Type Severity Reaction Status Date / Time No Known Allergies Allergy Verified 10/09/18 17:02 Home Medications Medication Instructions Recorded Confirmed Type [id number] fumarate-FA 1 tab PO HS 10/09/18 10/09/18 History [] buprenorphine HCl 8 mg SUBLINGUAL TID 10/09/18 10/09/18 History escitalopram oxalate [Lexapro] 10 mg PO HS 10/09/18 10/09/18 History ferrous sulfate [iron] 325 mg PO HS 10/09/18 10/09/18 History Physical Exam Vital signs: Vital Signs 10/09/18 20:50 10/10/18 00:00 10/10/18 08:00 Temperature 97.5 F L 97.8 F Pulse Rate 80 76 71 Respiratory Rate 20 18 20 Blood Pressure 122/70 127/66 132/63 Pulse Oximetry 99 98 98 10/10/18 14:24 10/10/18 16:00 Temperature 97.4 F L 98.1 F Pulse Rate 80 88 Respiratory Rate 20 20 Blood Pressure 127/66 107/60 Pulse Oximetry 98 96 Intake & Output 10/10/18 10/10/18 10/11/18 06:59 18:59 06:59 Intake Total 665 / 665 0 / 0 262.5 / 262.5 Output Total 300 / 300 Balance 665 / 665 -300 / -300 262.5 / 262.5 Weight 63 kg 63.7 kg Intake: IV 300 / 300 262.5 / 262.5 Zosyn 3.375 GM Premix 3.375 gm 50 / 50 In 50 ml @ 100 mls/hr IV.SIG Q6H JACOB Rx#:[id number] Vancomycin Inj 1,000 MG In NS 250 / 250 Inj 250 ML @ 250 mls/hr IV.SIG ONCE ONE Rx#:[id number] Vancomycin Inj 1,250 MG In NS 262.5 / 262.5 Inj 250 ML @ 250 mls/hr IV.SIG Q12H JACOB Rx#:[id number] Oral 365 / 365 0 / 0 Output: Urine 300 / 300 Other: # Voids 2 1 # Bowel Movements 0 Weight On Admission 64.4 kg Narrative: Upon entering the room, patient found to be sleeping comfortably, though easily arousable with voice No apparent anxiety moist mucous membranes PERRLA skin without rash respirations nonlabored moves all 4 extremities to command digits warm well perfused Right upper extremity Sensation intact light touch distally Moderate dorsal hand/thenar edema Blanching erythema limited to a 2 cm in diameter circular area of the distal volar radial forearm just overlying the radial artery Radial pulse 2+ No fluctuance appreciated Minimal tenderness over the fingers/palm/volar thumb/distal volar forearm Obvious track erazo and puncture in the distal volar forearm consistent with patient's report of injection in that area Severe tenderness over the thenar eminence Minimal erythema distal to the wrist crease First webspace nontender Results - Labs CBC & Chem 7: 10/10/18 05:20 10/10/18 05:20 Labs: Laboratory Results - last 24 hr 10/10/18 10/10/18 10/10/18 00:00 00:00 05:20 CBC w Diff Auto diff final WBC 14.5 H RBC 4.06 Hgb 12.9 Hct 38.3 MCV 94.3 MCH 31.9 MCHC 33.8 RDW 12.7 Plt Count 176 MPV 11.2 H Neut % (Auto) 76.9 H Lymph % (Auto) 16.9 [place] % (Auto) 4.6 Eos % (Auto) 0.6 Baso % (Auto) 1.0 Neut # (Auto) 11.2 H Lymph # (Auto) 2.4 [place] # (Auto) 0.7 Eos # (Auto) 0.1 Baso # (Auto) 0.1 WBC Differential . Differential Comment . ESR Sodium Potassium Chloride Carbon Dioxide Anion Gap BUN Creatinine Estimated GFR Random Glucose Calcium C-Reactive Protein Urine Color Yellow Urine Clarity Slightly cloudy Urine pH 6.5 Ur Specific [place] 1.020 Urine Protein Negative Urine Glucose (UA) Negative Urine Ketones Trace H Urine Occult Blood Negative Urine Nitrate Negative Urine Bilirubin Negative Urine Urobilinogen 0.2 Ur Leukocyte Esterase Negative Urine RBC 0-3 Urine WBC 0-5 Ur Squamous Epith Cells Greater than 10 H Urine Bacteria Few H Micro UA Comment Culture not ind Ur Microscopic Review Microscopic reviewed Urine Culture Comments Culture not ind Urine Opiates Screen Neg POC Urine Opiates POC Urine Buprenorphine POC Urine Oxycodone POC Urine Methadone Ur Barbiturates Screen Neg POC Urine Barbiturates POC Urine PCP Ur Amphetamines Screen Neg POC Ur Amphetamines POC Ur Methamphetamine POC Urine MDMA U Benzodiazepines Scrn Neg POC Ur Benzodiazepine Urine Cocaine Screen Neg POC Urine Cocaine U Cannabinoids Screen Neg POC Ur Marijuana (THC) 10/10/1818 10/10/18 05:20 05:20 05:20 CBC w Diff WBC RBC Hgb Hct MCV MCH MCHC RDW Plt Count MPV Neut % (Auto) Lymph % (Auto) [place] % (Auto) Eos % (Auto) Baso % (Auto) Neut # (Auto) Lymph # (Auto) [place] # (Auto) Eos # (Auto) Baso # (Auto) WBC Differential Differential Comment ESR 50 H Sodium 137 Potassium 3.6 Chloride 104 Carbon Dioxide 23.4 Anion Gap 10 BUN 8 Creatinine 0.38 L Estimated GFR Greater than 89 Random Glucose 67 L Calcium 8.5 C-Reactive Protein 1.74 H Urine Color Urine Clarity Urine pH Ur Specific [place] Urine Protein Urine Glucose (UA) Urine Ketones Urine Occult Blood Urine Nitrate Urine Bilirubin Urine Urobilinogen Ur Leukocyte Esterase Urine RBC Urine WBC Ur Squamous Epith Cells Urine Bacteria Micro UA Comment Ur Microscopic Review Urine Culture Comments Urine Opiates Screen POC Urine Opiates POC Urine Buprenorphine POC Urine Oxycodone POC Urine Methadone Ur Barbiturates Screen POC Urine Barbiturates POC Urine PCP Ur Amphetamines Screen POC Ur Amphetamines POC Ur Methamphetamine POC Urine MDMA U Benzodiazepines Scrn POC Ur Benzodiazepine Urine Cocaine Screen POC Urine Cocaine U Cannabinoids Screen POC Ur Marijuana (THC) 10/10/18 12:15 CBC w Diff WBC RBC Hgb Hct MCV MCH MCHC RDW Plt Count MPV Neut % (Auto) Lymph % (Auto) [place] % (Auto) Eos % (Auto) Baso % (Auto) Neut # (Auto) Lymph # (Auto) [place] # (Auto) Eos # (Auto) Baso # (Auto) WBC Differential Differential Comment ESR Sodium Potassium Chloride Carbon Dioxide Anion Gap BUN Creatinine Estimated GFR Random Glucose Calcium C-Reactive Protein Urine Color Urine Clarity Urine pH Ur Specific [place] Urine Protein Urine Glucose (UA) Urine Ketones Urine Occult Blood Urine Nitrate Urine Bilirubin Urine Urobilinogen Ur Leukocyte Esterase Urine RBC Urine WBC Ur Squamous Epith Cells Urine Bacteria Micro UA Comment Ur Microscopic Review Urine Culture Comments Urine Opiates Screen POC Urine Opiates Negative POC Urine Buprenorphine Positive POC Urine Oxycodone Negative POC Urine Methadone Negative Ur Barbiturates Screen POC Urine Barbiturates Negative POC Urine PCP Negative Ur Amphetamines Screen POC Ur Amphetamines Negative POC Ur Methamphetamine Negative POC Urine MDMA Negative U Benzodiazepines Scrn POC Ur Benzodiazepine Negative Urine Cocaine Screen POC Urine Cocaine Negative U Cannabinoids Screen POC Ur Marijuana (THC) Negative Assessment and Plan - Assessment (1) Infection of right hand Code(s): L08.9 - Local infection of the skin and subcutaneous tissue, unspecified Status: Acute - Plan 23-year-old female at 33 weeks gestation, with history of extensive narcotic and IV drug abuse, who presents with severe right thenar eminence pain in setting of recent IV drug injection Patient's clinical history and exam NOT consistent with flexor tenosynovitis/ necrotizing fasciitis No fluctuance/drainable fluid collections appreciated Patient expresses understanding, that should her infection worsen, she may need a surgical intervention, which could jeopardize the safety of her child as well as the fact that she is at significantly increased risks of further complication given her complicating psychosocial factors Agree with IV vancomycin/Zosyn Will follow
[2018-10-11] MEDS: Piperacil/Tazo 3.375 GM Premix 3.375 GM/50 ML PIGGYBACK IV.SIG SCH ×4 (01:04→21:49)
[2018-10-11] MEDS: Vancomycin Inj 1,250 MG in Sodium Chlor 0.9% Inj 250 ML IV.SIG SCH ×2 (05:04→18:45)
[2018-10-11 08:08] LABS: Baso # (Auto) 0.1 th/mm3 (0.0-0.2); Baso % (Auto) 0.5 % (0.0-2.0); Eos # (Auto) 0.1 th/mm3 (0.0-0.4); Eos % (Auto) 0.3 % (0.0-4.0); Hematocrit 40.8 % (35.0-46.0); Hemoglobin 14.2 gm/dL (11.6-15.3); Lymph # (Auto) 2.8 th/mm3 (1.0-4.8); Lymph % (Auto) 13.1 % (9.0-44.0); Mean Corpuscular HGB Conc 34.7 % (32.0-36.0); Mean Corpuscular Hemoglobin 33.5 pg (27.0-34.0); Mean Corpuscular Volume 96.5 fL (80.0-100.0); Mono # (Auto) 1.3 th/mm3 (0.0-0.9); Mono % (Auto) 6.2 % (0.0-8.0); Neut % (Auto) 79.9 % (16.0-70.0); Platelet Count 168 th/mm3 (150-450); Red Blood Count 4.23 mil/mm3 (4.00-5.30); Red Cell Distribution Width 13.3 % (11.6-17.2); White Blood Count 21.3 th/mm3 (4.0-11.0)
--- NOTE | 2018-10-11 10:41 | P.DIET ---
Nutritional Evaluation Type of nutrition evaluation: initial ( screen) Nutrition consult regarding: Diet Evaluation Nutrition screening: Objective - Diagnosis R thumb exterior tenosynovitis - Objective Body Weight Used for Calculations: Actual (64kg) Energy Needs - Lower Range (kCal/kg): 25 (+ 400 3rd trimester ) Energy Needs - Upper Range (kCal/kg): 30 (+400 3rd trimester ) Lower Limit kCal/kg (kCals): 2,000 Upper Limit kCal/kg (kCals): 2,320 Lower Limit Protein Factor (Grams per Kg): 1.2 Upper Limit Protein Factor (Grams per Kg): 1.5 Lower Protein Needs (Protein): 77 Upper Protein Needs (Protein): 96 Dietitian Reviewed in Medical Record: Current diet, Curent medications, Labs, Medical history Diet Order: Regular diet Oral Diet Intake Amount: Excellent 90%+ Assessment Assessment: screen. Pt is a 23 year old F who is 33 weeks gestation and active IV drug user. She was sleeping soundly when attempted to visit. Per last pt visit on 01/14/18 pt's pre- weight was 56 kg. Current body weight is 64kg, indicating 7.2kg weight gain during which is below recommended weight gain. Will order Ensure supplement BID to provide 250kcal and 9g protein to support PO intake. Will continue to monitor PO intake. Consult RD as needed. Recommendations: 1. Ensure supplement BID 2. Monitor PO intake
--- NOTE | 2018-10-11 10:44 | P.PNIM ---
Subjective Interval history: Patient reports slightly improved. However the swelling persists. No fevers. She reports the baby is moving well. No other issues. Physical Exam Vital signs: Last Vital Signs Temp 98 F 10/11/18 08:00 Pulse 77 10/11/18 08:00 Resp 18 10/11/18 08:00 BP 114/64 10/11/18 08:00 Pulse Ox 99 10/11/18 08:00 Intake & Output 10/09/18 10/10/18 10/11/18 10/12/18 06:59 06:59 06:59 06:59 Intake Total 665 / 665 927.5 / 927.5 50 / 50 Output Total 300 / 300 Balance 665 / 665 627.5 / 627.5 50 / 50 Weight 63 kg 64.2 kg Narrative: GENERAL: This is a well-nourished, well-developed patient, in no apparent distress. CARDIOVASCULAR: Normal rate and regular rhythm without murmurs, gallops, or rubs. RESPIRATORY: Good respiratory efforts. Breath sounds equal and clear to auscultation bilaterally. GASTROINTESTINAL: Abdomen gravid. Nontender. MUSCULOSKELETAL: Right hand is swollen. Obvious multiple old puncture site over the Palmar aspect of the distal forearm. Minimal erythema proximally. NEURO: Alert & Oriented x4 to person, place, time, situation. Moves all ext x4 PSYCH: Appropriate mood and affect. Results Labs CBC & Chem 7: 10/11/18 07:13 10/10/18 05:20 Assessment and Plan (1) Infection of right hand: Code(s): L08.9 - Local infection of the skin and subcutaneous tissue, unspecified Status: Acute Plan 23-year-old female current IV drug abuser who is 33 weeks admitted for right hand cellulitis from injection sites. Right wrist, hand cellulitis -Hand surgery following. Recommends continuing with IV antibiotics. - Continue vancomycin and Zosyn. - Follow blood cultures. - Advised nurse to elevate right hand to help with swelling. Leukocytosis -Likely secondary to the above infection. Worse today. -Continue to monitor CBC : 33 weeks gestational age -OB following. Polysubstance abuse -Patient is undergoing outpatient management with Subutex -Patient counseled on cessation DVT prevention -Sequential compression devices. She is ambulatory. Progress Note: Quality VTE Deep Vein Thrombosis/Pulmonary Embolism Present on Admission: No
[2018-10-11] MEDS ORDERED: Pharmacy Ordered Lab Info OTHER SCH (17:45)
--- NOTE | 2018-10-11 19:45 | P.PN ---
Subjective Interval history: Patient reports pain significantly improved from yesterday. No new complaints. Physical Exam Vital signs: Vital Signs 10/10/18 20:00 10/11/18 00:00 10/11/18 04:00 Temperature 97.7 F 98.4 F 97.8 F Pulse Rate 122 H 98 H 87 Respiratory Rate 18 17 15 Blood Pressure 151/92 H 128/88 110/65 Pulse Oximetry 97 96 98 10/11/18 08:00 10/11/18 12:00 10/11/18 16:00 Temperature 98 F 98.2 F 98.1 F Pulse Rate 77 72 72 Respiratory Rate 18 18 18 Blood Pressure 114/64 107/64 112/70 Pulse Oximetry 99 98 98 Intake & Output 10/11/18 10/11/18 10/12/18 06:59 18:59 06:59 Intake Total 877.5 / 877.5 100 / 100 Balance 877.5 / 877.5 100 / 100 Weight 64.2 kg Intake: IV 637.5 / 637.5 100 / 100 Zosyn 3.375 GM Premix 3.375 gm 100 / 100 100 / 100 In 50 ml @ 100 mls/hr IV.SIG Q6H JACOB Rx#:[id number] Vancomycin Inj 1,250 MG In NS 537.5 / 537.5 Inj 250 ML @ 250 mls/hr IV.SIG Q12H JACOB Rx#:[id number] Oral 240 / 240 Other: # Voids 3 Date of Last Bowel Movement 10/09/18 Narrative: Right upper extremity Erythema significantly improved Edema stable/slightly improved Tenderness to thumb and thenar eminence significantly improved No fluctuance appreciated Minimal tenderness if any over first flexor tendon sheath Results - Labs CBC & Chem 7: 10/11/18 07:13 10/10/18 05:20 Laboratory Results - last 24 hr 10/11/18 10/11/18 07:13 18:44 WBC 21.3 H RBC 4.23 Hgb 14.2 Hct 40.8 MCV 96.5 MCH 33.5 MCHC 34.7 RDW 13.3 Plt Count 168 MPV 11.0 Prelim Diff (Auto) Slide review pending Neut % (Auto) 79.9 H Lymph % (Auto) 13.1 [place] % (Auto) 6.2 Eos % (Auto) 0.3 Baso % (Auto) 0.5 Neut # (Auto) 17.0 H Lymph # (Auto) 2.8 [place] # (Auto) 1.3 H Eos # (Auto) 0.1 Baso # (Auto) 0.1 WBC Differential . Diff Scan Auto diff confirmed Differential Comment . Vancomycin Trough 19.8 H Microbiology 10/10/18 08:55 Blood - Peripheral Aerobic Blood Culture - Preliminary No growth in 1 day 10/10/18 08:55 Blood - Peripheral Anaerobic Blood Culture - Preliminary No growth in 1 day 10/10/18 08:40 Blood - Peripheral Aerobic Blood Culture - Preliminary No growth in 1 day 10/10/18 08:40 Blood - Peripheral Anaerobic Blood Culture - Preliminary No growth in 1 day Assessment and Plan - Assessment (1) Infection of right hand Code(s): L08.9 - Local infection of the skin and subcutaneous tissue, unspecified Status: Acute - Plan 23-year-old female at 33 weeks gestation, with history of extensive narcotic and IV drug abuse, who presents with severe right thenar eminence pain in setting of recent IV drug injection Agree with IV vancomycin/Zosyn Although white count significantly increased this morning, clinically patient is much improved No surgical intervention at this time
[2018-10-12] MEDS: Piperacil/Tazo 3.375 GM Premix 3.375 GM/50 ML PIGGYBACK IV.SIG SCH ×2 (00:59→10:06)
[2018-10-12] MEDS ORDERED: Vancomycin Inj 1,000 MG in Sodium Chlor 0.9% Inj 250 ML IV.SIG SCH (06:00)
[2018-10-12] MEDS ORDERED: Vancomycin Inj 900 MG in Sodium Chlor 0.9% Inj 250 ML IV.SIG SCH (06:00)
[2018-10-12 06:13] LABS: Calcium 8.4 mg/dL (8.5-10.1); Carbon Dioxide 18.7 meq/L (21.0-32.0)
[2018-10-12 06:14] LABS: Hematocrit 41.2 % (35.0-46.0); Hemoglobin 14.5 gm/dL (11.6-15.3); Mean Corpuscular HGB Conc 35.2 % (32.0-36.0); Mean Corpuscular Hemoglobin 33.2 pg (27.0-34.0); Mean Corpuscular Volume 94.2 fL (80.0-100.0); Mean Platelet Volume 10.9 fL (7.0-11.0); Platelet Count 152 th/mm3 (150-450); Red Blood Count 4.38 mil/mm3 (4.00-5.30); Red Cell Distribution Width 13.2 % (11.6-17.2); White Blood Count 18.7 th/mm3 (4.0-11.0)
--- NOTE | 2018-10-12 11:43 | P.PNIM ---
Subjective Interval history: Patient reports her right hand and wrist is feeling better. Swelling and stiffness has improved. Erythema around the wrist is mostly resolved. Unfortunately her kidney functions have declined unexpectedly. Physical Exam Vital signs: Last Vital Signs Temp 97.5 F L 10/12/18 08:00 Pulse 78 10/12/18 08:00 Resp 18 10/12/18 08:00 BP 107/55 L 10/12/18 08:00 Pulse Ox 98 10/12/18 08:00 Intake & Output 10/10/18 10/11/18 10/12/18 10/13/18 06:59 06:59 06:59 06:59 Intake Total 665 / 665 927.5 / 927.5 942.5 / 942.5 309 / 309 Output Total 300 / 300 Balance 665 / 665 627.5 / 627.5 942.5 / 942.5 309 / 309 Weight 63 kg 64.2 kg 64.7 kg Narrative: Narrative: GENERAL: This is a well-nourished, well-developed patient , in no apparent distress. CARDIOVASCULAR: Normal rate and regular rhythm without murmurs, gallops, or rubs. RESPIRATORY: Good respiratory efforts. Breath sounds equal and clear to auscultation bilaterally. GASTROINTESTINAL: Abdomen gravid. Nontender. MUSCULOSKELETAL: Right hand swelling significantly improved. Obvious multiple old puncture site over the Palmar aspect of the distal forearm/wrist. Minimal erythema proximally. NEURO: Alert & Oriented x4 to person, place, time, situation. Moves all ext x4 PSYCH: Appropriate mood and affect. Results Labs CBC & Chem 7: 10/12/18 05:17 10/12/18 05:17 Labs: Microbiology 10/10/18 08:55 Blood - Peripheral Aerobic Blood Culture - Preliminary No growth in 2 days 10/10/18 08:55 Blood - Peripheral Anaerobic Blood Culture - Preliminary No growth in 2 days 10/10/18 08:40 Blood - Peripheral Aerobic Blood Culture - Preliminary No growth in 2 days 10/10/18 08:40 Blood - Peripheral Anaerobic Blood Culture - Preliminary No growth in 2 days Assessment and Plan (1) Infection of right hand: Code(s): L08.9 - Local infection of the skin and subcutaneous tissue, unspecified Status: Acute Plan 23-year-old female current IV drug abuser who is 33 weeks admitted for right hand cellulitis from injection sites. Right wrist, hand cellulitis -Hand surgery following. Recommends continuing with IV antibiotics. -Given the sudden decline in renal function. Discontinue vancomycin. Continue with renally dosed Zosyn. Discussed with pharmacist. -Blood cultures so far negative at 48 hours - Advised nurse to elevate right hand to help with swelling. -Consult infectious disease to assist with antibiotic management. Acute kidney injury: Somewhat unexpected as her renal functions has been normal. May be related to antibiotics versus dehydration. -Vancomycin discontinued as above. Renally dose all medications. Avoid nephrotoxins. - Start IV fluid. - Check urine. Follow-up BMP in a.m. -If no improvement by tomorrow, consult nephrology. Leukocytosis -Likely secondary to the above infection. Slightly improved today. -Continue to monitor CBC : 33 weeks gestational age -Appreciate OB following. BPP and EFW today Polysubstance abuse -Patient is undergoing outpatient management with Subutex -Patient counseled on cessation DVT prevention -Sequential compression devices. She is ambulatory. Progress Note: Quality VTE Deep Vein Thrombosis/Pulmonary Embolism Present on Admission: No
--- NOTE | 2018-10-12 12:53 | P.OBGPN ---
Aware that patient in [facility] and receiving IV antibiotics. I have been told she has recently started using her sublingual Buprenorphine that is prescribed by Dr. Schafer intravenously. She apparently is a patient of [facility]/Dr. Dye. Need his records sent to [place]. I have ordered a BPP and EFW today, as she is reported to be 33 weeks. I will see in the next 24 hours.
[2018-10-12] MEDS: Sod Chloride 0.9% Inj 1,000 ML IV.CONT SCH ×2 (15:38→20:53)
[2018-10-12] MEDS: Piperacil/Tazo 2.25 GM Premix 2.25 GM/50 ML PIGGYBACK IV.SIG SCH ×2 (15:38→20:52)
--- NOTE | 2018-10-12 18:28 | P.CONOB ---
History of Present Illness Service: 23 yo swf at 33+ weeks transferred from ED where she presented with a right thumb joint infection/cellulits. Transferred here to confirm well being and has been since seen by Dr. Salinas. IV antibiotics have greatly improved clinical symptoms and hope is to avoid surgical intervention. However creatinine is 2.26 so antibiotic regimen needs readjusting. PNC is with [facility]. She has been compliant with PNC. She has been on subutex through a provider in [place] since prior to conception. She has been compliant and not used other substances. However, the increasing discomforts of and her job at [employer] led her to attempt to inject the subutex to address pain more quickly and she developed this infection. She is remorseful and has no intention of repeating this behavior. course has otherwise been uneventful with no PTL, gestational diabetes or HTN. She does not have Hep C or HIV. She is with her boyfriend of one year who is also on subutex from Dr. 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 They have an apartment and good family support. Her [facility]. Her substance use history began at 11 yoa with pot to "fit in" and progressed to pills given to her by her older sister. She started using heroin IV 18-24 months ago because it was affordable. She and her boyfriend sought out MAT and established with doctor in [place]. She acknowledges significant issues with depression and anxiety, stating family has a long history of depression and substance use. She does not think she has Attention deficit disorder. She is currently on lexapro from Dr. Azar. She is afebrile. she has no contractions, leaking, bleeding. She notes good movement. She would like to go home with oral antibiotics and follow up on an outpatient basis. She denies alcohol or other substances. She does smoke cigarettes. Medical history otherwise unremarkable. She is currently on norco unfortunately and needs to be changed back to her subutex snow. Consult date: 10/12/18 Reason for Consult: on MAT with episode of misuse Primary Care Physician: UNKNOWN Chief Complaint: Right hand pain History of Present Illness: HISTORY FROM ED PHYSICIAN: 23-year-old female with known , history of IV drug use, depression who presented to hospital because of right hand pain. Patient states that she is undergoing outpatient treatment for drug addiction along with Subutex 8 mg 3 times daily. Patient does have a history of IV heroin use. She has been injecting her Subutex on a daily basis up until 3 days ago when she started developing pain in her right hand which progressively got worse so she came to the emergency department yesterday. Patient was found to have edema , erythema in the injected area and it was recommended by the ER physician the patient be admitted the hospital for further evaluation and management. Patient denies any fever, chills. Patient only complaint is right hand pain. Patient is and is following a SUPERVISOR [employer] in outpatient setting up in [facility] However she states that that physician is not doing her OB. She was told that she would have to go to [place] for the delivery. Patient is currently laying in bed, still the only complaint is the right hand pain. No obvious signs of any withdrawal at this time. OB History: 23 yo at 33 weeks and 2 days who presents to the [facility] as a transfer from [place] ED for hand infection. The patient is an IVDU and shoots up in the right hand predominantly. She last used IV route 3 days ago. She was under the understanding that she was coming to the [facility] for hand surgery. I called the hand surgeon who was consulted in [place], Dr. Salinas, and he reported that he will see the patient, but that surgery was not scheduled. He would like her placed on a medical floor and continued IV antibiotics with vancomycin and zosyn. The patient is feeling baby move. She denies fluid leakage, vaginal bleeding, or contractions. She reports night sweats, chills. Denies chest pain, palpitations, headaches, RUQ pain, vision changes, SOB, LE edema. PMH: Depression PSH: none Medications: lexapro subutex prenatals iron FH: parents are well No family history of anesthesia problems Social History: Has been using illicit drugs since 15yo. She began her use with marijuana. She started using IV heroin about 1.5-2 years ago. She has been on Subutex even before her . She works as does her partner. She denies tobacco or alcohol use. Weeks Gestation:: 33 Review of Systems All other systems reviewed negative except as stated in HPI PMFSH - History History Provided By: Patient - Medical / Surgical Hx Neg / Unobtainable Medical Problems Denied: Yes Surgical History: No Previous Surgery - Medical History Medical History: Medical History (Last Reviewed 10/10/18 @ 07:24 by SONIA Merida) History of intravenous drug abuse Patient denies medical problems - Surgical History Surgical History: Surgical History (Last Reviewed 10/10/18 @ 07:24 by SONIA Merida) No history of previous surgery - Family History Family History: Family History (Last Updated 10/10/18 @ 07:24 by SONIA Merida) Mother Family history of cancer - Social History I have reviewed the patient's Social History: Yes - Tobacco History Second Hand Smoke Exposure: Yes Tobacco Use In Past 30 Days: Yes Smoking Status: Current every day smoker Tobacco Type: Cigarettes Cigarettes Per Day: 0.5 - Alcohol History How Often Do You Have a Drink Containing Alcohol: Never - Substance Use History Substance History: Active Abuse - Substance Use Type Other Status: Active Route Used: Intravenously Frequency: 8mg T.I.D, PO by perscription and 8mg QD IV Crack/Cocaine Status: Active Route Used: Intravenously - Travel History Recent Travel in the [place] Within the Last 8 Weeks: No Recent Travel Out of the Country Within the Last 8 Weeks: No - Immunization History Tetanus Immunization: Unsure Hx Influenza Vaccine This Season: No Medications and Allergies Active Medications: Active Medications Acetaminophen (Tylenol) 650 mg PO Q4H PRN PRN Reason: Temp > 100.4 Last Admin: 10/10/18 11:09 Dose: 650 mg Hydrocodone Bitart/Acetaminophen ([place] 7.5/325) 1 tab PO Q4H PRN PRN Reason: PAIN SCALE 6 TO 10 Last Admin: 10/12/18 15:16 Dose: 1 tab Sodium Chloride (Ns Inj) 1,000 mls @ 100 mls/hr IV.CONT .Q10H JACOB Last Admin: 10/12/18 15:38 Dose: 100 mls/hr Piperacillin/Tazobactam/Dextrose (Zosyn 2.25 Gm Premix) 2.25 gm in 50 mls @ 100 mls/hr IV.SIG Q6H JACOB Last Infusion: 10/12/18 16:13 Dose: Infused Naloxone HCl (Narcan Inj) 0.4 mg IV.PUSH UNSCH PRN PRN Reason: SEE LABEL COMMENTS Allergies Allergy/AdvReac Type Severity Reaction Status Date / Time No Known Allergies Allergy Verified 10/09/18 17:02 Home Medications Medication Instructions Recorded Confirmed Type [id number] fumarate-FA 1 tab PO HS 10/09/18 10/09/18 History [] buprenorphine HCl 8 mg SUBLINGUAL TID 10/09/18 10/09/18 History escitalopram oxalate [Lexapro] 10 mg PO HS 10/09/18 10/09/18 History ferrous sulfate [iron] 325 mg PO HS 10/09/18 10/09/18 History Exam Vital signs: Vital Signs 10/11/18 20:00 10/12/18 00:00 10/12/18 04:00 Temperature 97.9 F 98.0 F 98.0 F Pulse Rate 76 64 78 Respiratory Rate 16 15 16 Blood Pressure 100/54 L 109/59 L 98/55 L Pulse Oximetry 98 98 98 10/12/18 08:00 10/12/18 12:00 10/12/18 16:00 Temperature 97.5 F L 97.8 F 97.6 F Pulse Rate 78 90 66 Respiratory Rate 18 18 18 Blood Pressure 107/55 L 115/66 102/59 L Pulse Oximetry 98 99 99 Intake & Output 10/11/18 10/12/18 10/12/18 18:59 06:59 18:59 Intake Total 100 / 100 842.5 / 842.5 359 / 359 Balance 100 / 100 842.5 / 842.5 359 / 359 Weight 64.7 kg Intake: IV 100 / 100 362.5 / 362.5 359 / 359 Zosyn 2.25 GM Premix 2.25 gm In 50 / 50 50 ml @ 100 mls/hr IV.SIG Q6H JACOB Rx#:[id number] Zosyn 3.375 GM Premix 3.375 gm 100 / 100 100 / 100 50 / 50 In 50 ml @ 100 mls/hr IV.SIG Q6H JACOB Rx#:[id number] Vancomycin Inj 900 MG In NS Inj 262.5 / 262.5 259 / 259 250 ML @ 250 mls/hr IV.SIG Q12H JACOB Rx#:[id number] Oral 480 / 480 Other: # Voids 6 # Bowel Movements 0 Narrative: reviewed ultrasound and surveillance is reassuring Results - Labs CBC & Chem 7: 10/12/18 05:17 10/12/18 05:17 Labs: Laboratory Results - last 24 hr 10/11/18 10/12/18 10/12/18 18:44 05:17 05:17 WBC 18.7 H RBC 4.38 Hgb 14.5 Hct 41.2 MCV 94.2 MCH 33.2 MCHC 35.2 RDW 13.2 Plt Count 152 MPV 10.9 Hematology Comments Sodium 139 Potassium 5.0 D Chloride 108 H Carbon Dioxide 18.7 L Anion Gap 12 BUN 25 H Creatinine 2.24 H Estimated GFR 27 L Random Glucose 64 L Calcium 8.4 L Vancomycin Trough 19.8 H Assessment and Plan - Diagnosis (1) Infection of right hand Code(s): L08.9 - Local infection of the skin and subcutaneous tissue, unspecified Status: Acute (2) IVDA (intravenous drug abuse) complicating Code(s): O99.320 - Drug use complicating , unspecified trimester; F19.10 - Other psychoactive substance abuse, uncomplicated Status: Acute (3) 33 weeks gestation of Code(s): Z3A.33 - 33 weeks gestation of Status: Acute - Plan 23 yo at 33 weeks and 2 days who presents to the [facility] as a transfer from [place] ED for hand infection. FHR 135 baseline with moderate variability. - Cleared from the OB standpoint - Admit to [facility] for IV antibiotic administration - Dr. Salinas, hand surgery, has been consulted by ED and will see the patient. He recommends continuing vanc and zosyn. 10/12/18 6 pm I will accept her into my practice and provide subutex Needs appointment for first week of the year. 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 We will need to re do prior authorization Change from norco to subutex!!! discussed with Dr. Nava-- elevated creatinine likely due to vanco Will change to daptomycin. can be discharge from ob standpoint when joint infection safe to follow up on an outpatient basis. OK to fly from OB standpoint. May not be from infection standpoint.
--- NOTE | 2018-10-12 19:32 | P.CONID ---
History of Present Illness Service: ID Consult date: 10/12/18 Requesting Physician: Iram Tolliver Reason for Consult: R hand infection Primary Care Provider: UNKNOWN Chief Complaint: Right hand pain History of Present Illness: 23 yo pregant female @ 33 weeks, no past med history, active IV drug user shoot crushed pills in her R wrist and presented with swollen, red painful R hand SHe is foolowed buy Dr Mancini conservaetively and appears to respond to abx No fever, no chills Improved edema, erythema an pain of R hand Blood clx are negative No drainage from the hand to culture Today her creatnine went up to 2.24 from 0.89 j ust 2 days ago; adequate UOP WBC also in 18-21 K range PMFSH - History History Provided By: Patient - Medical / Surgical Hx Neg / Unobtainable Medical Problems Denied: Yes - Medical History Medical History: Medical History (Last Reviewed 10/12/18 @ 19:25 by Jannet Nava MD) History of intravenous drug abuse Patient denies medical problems - Surgical History Surgical History: Surgical History (Last Reviewed 10/12/18 @ 19:25 by Jannet Nava MD) No history of previous surgery - Family History Family History: Family History (Last Reviewed 10/12/18 @ 19:25 by Jannet Nava MD) Mother Family history of cancer - Social History I have reviewed the patient's Social History: Yes - Tobacco History Second Hand Smoke Exposure: Yes Tobacco Use In Past 30 Days: Yes Smoking Status: Current every day smoker Tobacco Type: Cigarettes Cigarettes Per Day: 0.5 - Alcohol History How Often Do You Have a Drink Containing Alcohol: Never - Substance Use History Substance History: Active Abuse - Substance Use Type Other Status: Active Route Used: Intravenously Frequency: 8mg T.I.D, PO by perscription and 8mg QD IV Crack/Cocaine Status: Active Route Used: Intravenously - Travel History Recent Travel in the [place] Within the Last 8 Weeks: No Recent Travel Out of the Country Within the Last 8 Weeks: No - Immunization History Tetanus Immunization: Unsure Hx Influenza Vaccine This Season: No Medications and Allergies Active Medications: Active Medications Acetaminophen (Tylenol) 650 mg PO Q4H PRN PRN Reason: Temp > 100.4 Last Admin: 10/10/18 11:09 Dose: 650 mg Buprenorphine HCl (Buprenorphine) 8 mg SL TID JACOB Sodium Chloride (Ns Inj) 1,000 mls @ 100 mls/hr IV.CONT .Q10H JACOB Last Admin: 10/12/18 15:38 Dose: 100 mls/hr Piperacillin/Tazobactam/Dextrose (Zosyn 2.25 Gm Premix) 2.25 gm in 50 mls @ 100 mls/hr IV.SIG Q6H JACOB Last Infusion: 10/12/18 16:13 Dose: Infused Acetaminophen (Ofirmev Inj) 1,000 mg in 100 mls @ 400 mls/hr IV.SIG Q6H PRN PRN Reason: PAIN SCALE 7 TO 10 SEVERE Allergies Allergy/AdvReac Type Severity Reaction Status Date / Time No Known Allergies Allergy Verified 10/09/18 17:02 Home Medications Medication Instructions Recorded Confirmed Type [id number] fumarate-FA 1 tab PO HS 10/09/18 10/09/18 History [] buprenorphine HCl 8 mg SUBLINGUAL TID 10/09/18 10/09/18 History escitalopram oxalate [Lexapro] 10 mg PO HS 10/09/18 10/09/18 History ferrous sulfate [iron] 325 mg PO HS 10/09/18 10/09/18 History Exam Vital signs: Vital Signs 10/11/18 20:00 10/12/18 00:00 10/12/18 04:00 Temperature 97.9 F 98.0 F 98.0 F Pulse Rate 76 64 78 Respiratory Rate 16 15 16 Blood Pressure 100/54 L 109/59 L 98/55 L Pulse Oximetry 98 98 98 10/12/18 08:00 10/12/18 12:00 10/12/18 16:00 Temperature 97.5 F L 97.8 F 97.6 F Pulse Rate 78 90 66 Respiratory Rate 18 18 18 Blood Pressure 107/55 L 115/66 102/59 L Pulse Oximetry 98 99 99 Intake & Output 10/12/18 10/12/18 10/13/18 06:59 18:59 06:59 Intake Total 842.5 / 842.5 359 / 359 Balance 842.5 / 842.5 359 / 359 Weight 64.7 kg Intake: IV 362.5 / 362.5 359 / 359 Zosyn 2.25 GM Premix 2.25 gm In 50 / 50 50 ml @ 100 mls/hr IV.SIG Q6H JACOB Rx#:[id number] Zosyn 3.375 GM Premix 3.375 gm 100 / 100 50 / 50 In 50 ml @ 100 mls/hr IV.SIG Q6H JACOB Rx#:[id number] Vancomycin Inj 900 MG In NS Inj 262.5 / 262.5 259 / 259 250 ML @ 250 mls/hr IV.SIG Q12H JACOB Rx#:[id number] Oral 480 / 480 Other: # Voids 6 # Bowel Movements 0 - Constitutional no acute distress, average body habitus - Routine HEENT Exam Head: Present: normocephalic, atraumatic Eye: Present: EOMI, PERRL ENT: Present: mucous membranes moist, dentition normal - Routine Neck Exam Present: supple. Absent: JVD, lymphadenopathy - Routine Respiratory Exam Present: CTA bilaterally. Absent: accessory muscle use, decreased breath sounds , respiratory distress - Routine Cardiovascular Exam Present: RRR, S1, S2. Absent: murmur, gallop, rubs - Routine Abdominal Exam Present: soft, normoactive bowel sounds. Absent: tenderness, distended Comments: gravid abdomen - Routine Extremities Exam Absent: cyanosis, clubbing, edema Comments: STATUS LOCALIS R hand: + mild to moderate non pitting hand edema, minimal erythema Tenderness to thumb and thenar eminence - mild No fluctuance appreciated - Routine Skin Exam Present: intact, dry, warm. Absent: rash - Routine Neurological Exam Present: alert, oriented X3, CN II-XII intact. Absent: sensory deficit, motor deficit - Routine Psychiatric Exam Present: normal affect, cooperative Results - Labs CBC & Chem 7: 10/12/18 05:17 10/12/18 05:17 Labs: Laboratory Results - last 24 hr 10/11/18 10/12/18 10/12/18 18:44 05:17 05:17 WBC 18.7 H RBC 4.38 Hgb 14.5 Hct 41.2 MCV 94.2 MCH 33.2 MCHC 35.2 RDW 13.2 Plt Count 152 MPV 10.9 Hematology Comments Sodium 139 Potassium 5.0 D Chloride 108 H Carbon Dioxide 18.7 L Anion Gap 12 BUN 25 H Creatinine 2.24 H Estimated GFR 27 L Random Glucose 64 L Calcium 8.4 L Vancomycin Trough 19.8 H Assessment and Plan - Plan R hand phlegmone, cellulits aw IV drug injection iproving on empiric abx ELIA ? vanco dc vanco chk urine eosinophils start daptomycin US or non contrasted MR R hand if gets worse dw pt, mom @ b/s dw Dr Pena
[2018-10-12] MEDS: SODIUM CHLOR 0.9% IV.SIG SCH (21:39)
[2018-10-12] MEDS: DAPTOMYCIN IV.SIG SCH (21:39)
[2018-10-13] MEDS: Piperacil/Tazo 2.25 GM Premix 2.25 GM/50 ML PIGGYBACK IV.SIG SCH ×3 (03:43→14:21)
[2018-10-13 06:40] LABS: Hematocrit 34.9 % (35.0-46.0); Hemoglobin 12.1 gm/dL (11.6-15.3); Mean Corpuscular HGB Conc 34.5 % (32.0-36.0); Mean Corpuscular Hemoglobin 33.2 pg (27.0-34.0); Mean Corpuscular Volume 96.1 fL (80.0-100.0); Mean Platelet Volume 10.2 fL (7.0-11.0); Platelet Count 131 th/mm3 (150-450); Red Blood Count 3.64 mil/mm3 (4.00-5.30); Red Cell Distribution Width 13.3 % (11.6-17.2); White Blood Count 12.9 th/mm3 (4.0-11.0)
[2018-10-13 06:42] LABS: Calcium 8.1 mg/dL (8.5-10.1); Carbon Dioxide 21.5 meq/L (21.0-32.0); Potassium 3.9 meq/L (3.5-5.1); Vancomycin,Random 29.6 Comment
[2018-10-13] MEDS: Sod Chloride 0.9% Inj 1,000 ML IV.CONT SCH ×4 (08:52→20:39)
--- NOTE | 2018-10-13 12:09 | US ---
EXAM DATE: 10/13/2018 11:22 AM EST AGE/SEX: 23 years / Female INDICATIONS: Increased Bun and Creatinine. CLINICAL DATA: This is the patient's initial encounter. Patient reports that signs and symptoms have been present for 1 day and indicates a pain score of 4/10. MEDICAL/SURGICAL HISTORY: . IV drug use. None. COMPARISON: No prior exams available for comparison. MEASUREMENTS: Right Kidney:__13.4 x 6.0 x 4.9 cm Left Kidney:__12.6 x 6.5 x 6.0 cm FINDINGS: Right Kidney: Normal echogenicity and cortical thickness. No mass or hydronephrosis. Left Kidney: Minimal prominence of the upper pole calyx on the left is noted and is nonspecific. CT a bdomen and pelvis with and without contrast or CT urogram may be helpful for further evaluation of th is finding if clinically indicated. No mass is noted. Bladder: Within normal limits given the degree of distension. Other: None. CONCLUSION: 1. Minimal prominence of the upper pole calyx on the left is noted and is nonspecific. CT abdomen an d pelvis with and without contrast or CT urogram may be helpful for further evaluation of this findin g if clinically indicated. Electronically signed by: Genaro Mitchell MD Board Certified Radiologist 10/13/2018 12:07 PM EST
--- NOTE | 2018-10-13 12:11 | P.CONNP ---
<YulyNinoska duarte - Last Filed: 10/13/18 11:57> History of Present Illness Service: Nephrology Consult date: 10/13/18 Requesting Physician: Walter García Reason for Consult: Acute kidney injury Primary Care Provider: UNKNOWN Chief Complaint: Right hand pain History of Present Illness: Patient is a 23-year-old female with known , history of IV drug use, and depression. Presented to hospital because of right hand pain. Patient states that she is undergoing outpatient treatment for drug addiction along with Subutex 8 mg 3 times daily. Patient does have a history of IV heroin use. She has been injecting her Subutex on a daily basis up until 3 days ago when she started developing pain in her right hand which progressively got worse. Nephrology is consulted for acute kidney injury with a creatinine 3.03, creatinine started to increase yesterday. Potassium and fluid balance stable. Baseline creatinine is under 1. Renal ultrasound pending. Denies any shortness of breath, chest pain, nausea, or vomiting. Very tearful wanting to be discharged. Has some swelling and pain in right hand. Review of Systems All other systems reviewed negative except as stated in HPI PMFSH - History History Provided By: Patient - Medical / Surgical Hx Neg / Unobtainable Medical Problems Denied: Yes - Medical History Medical History: Medical History (Last Reviewed 10/12/18 @ 19:25 by Jannet Nava MD) History of intravenous drug abuse Patient denies medical problems - Surgical History Surgical History: Surgical History (Last Reviewed 10/12/18 @ 19:25 by Jannet Nava MD) No history of previous surgery - Family History Family History: Family History (Last Reviewed 10/12/18 @ 19:25 by Jannet Nava MD) Mother Family history of cancer - Tobacco History Second Hand Smoke Exposure: Yes Tobacco Use In Past 30 Days: Yes Smoking Status: Current every day smoker Tobacco Type: Cigarettes Cigarettes Per Day: 0.5 - Alcohol History How Often Do You Have a Drink Containing Alcohol: Never - Substance Use History Substance History: Active Abuse - Substance Use Type Other Status: Active Route Used: Intravenously Frequency: 8mg T.I.D, PO by perscription and 8mg QD IV Crack/Cocaine Status: Active Route Used: Intravenously - Travel History Recent Travel in the [place] Within the Last 8 Weeks: No Recent Travel Out of the Country Within the Last 8 Weeks: No - Immunization History Tetanus Immunization: Unsure Hx Influenza Vaccine This Season: No Medications and Allergies Allergies Allergy/AdvReac Type Severity Reaction Status Date / Time No Known Allergies Allergy Verified 10/09/18 17:02 Home Medications Medication Instructions Recorded Confirmed Type [id number] fumarate-FA 1 tab PO HS 10/09/18 10/09/18 History [] buprenorphine HCl 8 mg SUBLINGUAL TID 10/09/18 10/09/18 History escitalopram oxalate [Lexapro] 10 mg PO HS 10/09/18 10/09/18 History ferrous sulfate [iron] 325 mg PO HS 10/09/18 10/09/18 History Active Medications: Active Medications Acetaminophen (Tylenol) 650 mg PO Q4H PRN PRN Reason: Temp > 100.4 Last Admin: 10/10/18 11:09 Dose: 650 mg Buprenorphine HCl (Buprenorphine) 8 mg SL TID [facility] Last Admin: 10/13/18 08:53 Dose: 8 mg Sodium Chloride (Ns Inj) 1,000 mls @ 150 mls/hr IV.CONT .Q6H40M [facility] Last Admin: 10/13/18 08:52 Dose: 150 mls/hr Piperacillin/Tazobactam/Dextrose (Zosyn 2.25 Gm Premix) 2.25 gm in 50 mls @ 100 mls/hr IV.SIG Q6H [facility] Last Infusion: 10/13/18 09:43 Dose: Infused Acetaminophen (Ofirmev Inj) 1,000 mg in 100 mls @ 400 mls/hr IV.SIG Q6H PRN PRN Reason: PAIN SCALE 7 TO 10 SEVERE Daptomycin 300 mg/ Sodium (Chloride) 100 mls @ 200 mls/hr IV.SIG Q24H [facility] Last Infusion: 10/12/18 22:00 Dose: Infused Exam Vital signs: Vital Signs 10/12/18 12:00 10/12/18 16:00 10/12/18 20:00 Temperature 97.8 F 97.6 F 97.8 F Pulse Rate 90 66 69 Respiratory Rate 18 18 17 Blood Pressure 115/66 102/59 L 108/59 L Pulse Oximetry 99 99 97 10/13/18 00:00 10/13/18 05:15 10/13/18 07:59 Temperature 98 F 97.2 F L Pulse Rate 79 67 Respiratory Rate 17 17 18 Blood Pressure 104/55 L 107/66 Pulse Oximetry 97 97 10/13/18 08:00 Temperature Pulse Rate 74 Respiratory Rate 18 Blood Pressure 118/71 Pulse Oximetry 98 Intake & Output 10/12/18 10/13/18 10/13/18 18:59 06:59 18:59 Intake Total 359 / 359 2200 / 2200 50 / 50 Balance 359 / 359 2200 / 2200 50 / 50 Intake: IV 359 / 359 2200 / 2200 50 / 50 NS Inj 1,000 ML @ 150 mls/hr IV 1999 .CONT .Q6H40M [facility] Rx#:[id number] Cubicin Inj 300 MG In NS Inj 100 / 100 100 ML @ 200 mls/hr IV.SIG Q24H [facility] Rx#:[id number] Zosyn 2.25 GM Premix 2.25 gm In 50 / 50 100 / 100 50 / 50 50 ml @ 100 mls/hr IV.SIG Q6H [facility] Rx#:[id number] Zosyn 3.375 GM Premix 3.375 gm 50 / 50 In 50 ml @ 100 mls/hr IV.SIG Q6H [facility] Rx#:[id number] Vancomycin Inj 900 MG In NS Inj 259 / 259 250 ML @ 250 mls/hr IV.SIG Q12H [facility] Rx#:[id number] Narrative: GENERAL: alert and oriented. NAD SKIN: Warm and dry. NECK: Supple, trachea midline. No JVD. CARDIOVASCULAR: Regular rate and rhythm without murmurs, gallops, or rubs. RESPIRATORY: Breath sounds equal bilaterally. No accessory muscle use. GASTROINTESTINAL: Abdomen soft, non-tender, nondistended. +BS. MUSCULOSKELETAL: No cyanosis, Right hand with some edema. BACK: Nontender without obvious deformity. No CVA tenderness. Results - Lab Results 10/13/18 05:46 10/13/18 05:46 Most recent lab results Calcium 8.1 mg/dL (8.5-10.1) L 10/13/18 05:46 - Image Kidney/bladder ultrasound: pending Assessment and Plan - Assessment (1) Acute kidney injury Code(s): N17.9 - Acute kidney failure, unspecified Status: Acute Plan: Acute kidney injury with a creatinine 3.03, creatinine started to increase yesterday. Potassium and fluid balance stable. Baseline creatinine is under 1. Acute kidney injury possibly ATN from infection or AIN from vancomycin toxicity. Trough elevated on the . EOS negative. Abdominal ultrasound pending. Avoid nephrotoxins. Continue IVF's for now, tolerating well. On antibiotics renal dose as appropriate. Fluid balance and electrolyte stable. Will order strict I+O and monitor daily labs. (2) Infection of right hand Code(s): L08.9 - Local infection of the skin and subcutaneous tissue, unspecified Status: Acute Plan: On antibiotics per ID recommendations. (3) IVDA (intravenous drug abuse) complicating Code(s): O99.320 - Drug use complicating , unspecified trimester; F19.10 - Other psychoactive substance abuse, uncomplicated Status: Acute Plan: On buprenorphine. <Soheila Barrientos Q - Last Filed: 10/13/18 21:08> History of Present Illness Primary Care Provider: UNKNOWN [facility] - Medical History Medical History: Medical History (Last Reviewed 10/12/18 @ 19:25 by Jannet Nava MD) History of intravenous drug abuse Patient denies medical problems - Surgical History Surgical History: Surgical History (Last Reviewed 10/12/18 @ 19:25 by Jannet Nava MD) No history of previous surgery - Family History Family History: Family History (Last Reviewed 10/12/18 @ 19:25 by Jannet Nava MD) Mother Family history of cancer Medications and Allergies Active Medications: Active Medications Acetaminophen (Tylenol) 650 mg PO Q4H PRN PRN Reason: Temp > 100.4 Last Admin: 10/10/18 11:09 Dose: 650 mg Buprenorphine HCl (Buprenorphine) 8 mg SL TID [facility] Last Admin: 10/13/18 17:00 Dose: 8 mg Sodium Chloride (Ns Inj) 1,000 mls @ 150 mls/hr IV.CONT .Q6H40M [facility] Last Admin: 10/13/18 20:39 Dose: 150 mls/hr Acetaminophen (Ofirmev Inj) 1,000 mg in 100 mls @ 400 mls/hr IV.SIG Q6H PRN PRN Reason: PAIN SCALE 7 TO 10 SEVERE Daptomycin 300 mg/ Sodium (Chloride) 100 mls @ 200 mls/hr IV.SIG Q24H [facility] Last Admin: 10/13/18 20:39 Dose: 200 mls/hr Ceftriaxone Sodium 2,000 mg/ (Sodium Chloride) 100 mls @ 200 mls/hr IV.SIG Q24H [facility] Last Infusion: 10/13/18 17:51 Dose: Infused Exam Vital signs: Vital Signs 10/13/18 00:00 10/13/18 05:15 10/13/18 07:59 Temperature 98 F 97.2 F L Pulse Rate 79 67 Respiratory Rate 17 17 18 Blood Pressure 104/55 L 107/66 Pulse Oximetry 97 97 10/13/18 08:00 10/13/18 12:00 10/13/18 16:00 Temperature 97.8 F 97.3 F L Pulse Rate 74 83 78 Respiratory Rate 18 18 Blood Pressure 118/71 109/68 137/82 Pulse Oximetry 98 98 95 Intake & Output 10/13/18 10/13/18 10/14/18 06:59 18:59 06:59 Intake Total 2200 / 2200 1200 / 1200 1000 / 1000 Balance 2200 / 2200 1200 / 1200 1000 / 1000 Intake: IV 2200 / 2200 1200 / 1200 1000 / 1000 NS Inj 1,000 ML @ 150 mls/hr IV 2000 / 2000 1000 / 1000 1000 / 1000 .CONT .Q6H40M [facility] Rx#:[id number] Cubicin Inj 300 MG In NS Inj 100 / 100 100 ML @ 200 mls/hr IV.SIG Q24H [facility] Rx#:[id number] Zosyn 2.25 GM Premix 2.25 gm In 100 / 100 100 / 100 50 ml @ 100 mls/hr IV.SIG Q6H [facility] Rx#:[id number] Rocephin Inj 2,000 MG In NS Inj 100 / 100 100 ML @ 200 mls/hr IV.SIG Q24H [facility] Rx#:[id number] Other: # Voids 8 Results - Lab Results 10/13/18 05:46 10/13/18 05:46 Most recent lab results Calcium 8.1 mg/dL (8.5-10.1) L 10/13/18 05:46 Assessment and Plan - Assessment (1) Acute kidney injury Code(s): N17.9 - Acute kidney failure, unspecified Status: Acute Plan: Patient seen and examined, agree with above. Patient has ELIA, possibly ATN due to infection, may be related to Vanco, as the level was elevated. Has been non oliguric. BP is stable, continue antibiotics as per ID. (2) Infection of right hand Code(s): L08.9 - Local infection of the skin and subcutaneous tissue, unspecified Status: Acute (3) IVDA (intravenous drug abuse) complicating Code(s): O99.320 - Drug use complicating , unspecified trimester; F19.10 - Other psychoactive substance abuse, uncomplicated Status: Acute
--- NOTE | 2018-10-13 15:35 | P.PNIM ---
Subjective Interval history: Patient reports she is feeling better today. Right hand swelling is improved. Better range of motion. No fevers. However her renal function continues to worsen. Physical Exam Vital signs: Last Vital Signs Temp 97.8 F 10/13/18 12:00 Pulse 83 10/13/18 12:00 Resp 18 10/13/18 12:00 BP 109/68 10/13/18 12:00 Pulse Ox 98 10/13/18 12:00 Intake & Output 10/11/18 10/12/18 10/13/18 10/14/18 06:59 06:59 06:59 06:59 Intake Total 927.5 / 927.5 942.5 / 942.5 2559 / 2559 1100 / 1100 Output Total 300 / 300 Balance 627.5 / 627.5 942.5 / 942.5 2559 / 2559 1100 / 1100 Weight 64.2 kg 64.7 kg Narrative: GENERAL: This is a well-nourished, well-developed patient, in no apparent distress. CARDIOVASCULAR: Normal rate and regular rhythm without murmurs, gallops, or rubs. RESPIRATORY: Good respiratory efforts. Breath sounds equal and clear to auscultation bilaterally. GASTROINTESTINAL: Abdomen gravid. Nontender. MUSCULOSKELETAL: Right hand swelling continues to improve. Better range of motion. Obvious multiple old puncture site over the Palmar aspect of the distal forearm/wrist. Minimal erythema proximally. NEURO: Alert & Oriented x4 to person, place, time, situation. Moves all ext x4 PSYCH: Appropriate mood and affect. Results Labs CBC & Chem 7: 10/13/18 05:46 10/13/18 05:46 Labs: Microbiology 10/10/18 08:55 Blood - Peripheral Aerobic Blood Culture - Preliminary No growth in 3 days 10/10/18 08:55 Blood - Peripheral Anaerobic Blood Culture - Preliminary No growth in 3 days 10/10/18 08:40 Blood - Peripheral Aerobic Blood Culture - Preliminary No growth in 3 days 10/10/18 08:40 Blood - Peripheral Anaerobic Blood Culture - Preliminary No growth in 3 days Imaging Imaging: Impressions Abdomen/Bladder Ultrasound 10/13/18 00:00 CONCLUSION: 1. Minimal prominence of the upper pole calyx on the left is noted and is nonspecific. CT abdomen and pelvis with and without contrast or CT urogram may be helpful for further evaluation of this finding if clinically indicated. Assessment and Plan (1) Acute kidney injury: Code(s): N17.9 - Acute kidney failure, unspecified Status: Acute (2) Infection of right hand: Code(s): L08.9 - Local infection of the skin and subcutaneous tissue, unspecified Status: Acute (3) IVDA (intravenous drug abuse) complicating : Code(s): O99.320 - Drug use complicating , unspecified trimester; F19.10 - Other psychoactive substance abuse, uncomplicated Status: Acute Plan 23-year-old female current IV drug abuser who is 33 weeks admitted for right hand cellulitis from injection sites. Right wrist, hand cellulitis -Hand surgery following. Recommends continuing with IV antibiotics. -Given the sudden decline in renal function. Discontinue vancomycin. Continue with renally dosed Zosyn. Discussed with pharmacist. -Blood cultures so far negative at 48 hours - Advised nurse to elevate right hand to help with swelling. -Consult infectious disease to assist with antibiotic management. Acute kidney injury: Somewhat unexpected as her renal functions has been normal. May be related to antibiotics versus dehydration. -Vancomycin discontinued as above. Renally dose all medications. Avoid nephrotoxins. -Increase IV fluid. -Consult nephrology for assistance - Check Abdominal ultrasound -Urinalysis unremarkable. Follow-up BMP in a.m. Leukocytosis -Likely secondary to the above infection. Improved. -Continue to monitor CBC : 33 weeks gestational age -Appreciate OB following. Polysubstance abuse -Patient is undergoing outpatient management with Subutex -On Subutex DVT prevention -Sequential compression devices. She is ambulatory. Progress Note: Quality VTE Deep Vein Thrombosis/Pulmonary Embolism Present on Admission: No
--- NOTE | 2018-10-13 16:33 | P.OBGPN ---
notes and labs reviewed. Aware that acute renal injury being addressed. Obstetrically she is fine and will not see over weekend. Goal is to have come to office in two weeks. If needed, I can be called at [phone].
--- NOTE | 2018-10-13 16:34 | P.PNID ---
Subjective Remarks: hand is better creatinine is rising no fever urine eos negative good UOP and no urinary complaints Antibiotics: dapto zosyn Allergies/Adverse Reactions: Allergies No Known Allergies Allergy (Verified 10/09/18 17:02) Objective Vital Signs 10/12/18 20:00 10/13/18 00:00 10/13/18 05:15 Temperature 97.8 F 98 F 97.2 F L Pulse Rate 69 79 67 Respiratory Rate 17 17 17 Blood Pressure 108/59 L 104/55 L 107/66 Pulse Oximetry 97 97 97 10/13/18 07:59 10/13/18 08:00 10/13/18 12:00 Temperature 97.8 F Pulse Rate 74 83 Respiratory Rate 18 18 18 Blood Pressure 118/71 109/68 Pulse Oximetry 98 98 Intake & Output 10/12/18 10/13/18 10/13/18 18:59 06:59 18:59 Intake Total 359 / 359 2200 / 2200 1100 / 1100 Balance 359 / 359 2200 / 2200 1100 / 1100 Intake: IV 359 / 359 2200 / 2200 1100 / 1100 NS Inj 1,000 ML @ 150 mls/hr IV 2000 / 2000 1000 / 1000 .CONT .Q6H40M [facility] Rx#:[id number] Cubicin Inj 300 MG In NS Inj 100 / 100 100 ML @ 200 mls/hr IV.SIG Q24H [facility] Rx#:[id number] Zosyn 2.25 GM Premix 2.25 gm In 50 / 50 100 / 100 100 / 100 50 ml @ 100 mls/hr IV.SIG Q6H [facility] Rx#:[id number] Zosyn 3.375 GM Premix 3.375 gm 50 / 50 In 50 ml @ 100 mls/hr IV.SIG Q6H [facility] Rx#:[id number] Vancomycin Inj 900 MG In NS Inj 259 / 259 250 ML @ 250 mls/hr IV.SIG Q12H [facility] Rx#:[id number] 10/10/18 08:55 Blood - Peripheral Aerobic Blood Culture - Preliminary No growth in 3 days 10/10/18 08:55 Blood - Peripheral Anaerobic Blood Culture - Preliminary No growth in 3 days 10/10/18 08:40 Blood - Peripheral Aerobic Blood Culture - Preliminary No growth in 3 days 10/10/18 08:40 Blood - Peripheral Anaerobic Blood Culture - Preliminary No growth in 3 days Lab - Hematology Results 10/12/18 10/13/18 05:17 05:46 WBC 18.7 H 12.9 H RBC 4.38 3.64 L Hgb 14.5 12.1 D Hct 41.2 34.9 L MCV 94.2 96.1 MCH 33.2 33.2 MCHC 35.2 34.5 RDW 13.2 13.3 Plt Count 152 131 L MPV 10.9 10.2 Hematology Comments Lab - Chemistry Results 10/12/18 10/13/18 05:17 05:46 Sodium 139 141 Potassium 5.0 D 3.9 D Chloride 108 H 110 H Carbon Dioxide 18.7 L 21.5 Anion Gap 12 10 BUN 25 H 34 H Creatinine 2.24 H 3.05 H Estimated GFR 27 L 19 L Random Glucose 64 L 87 Calcium 8.4 L 8.1 L Imaging: ITS Impressions Abdomen/Bladder Ultrasound 10/13/18 00:00 CONCLUSION: 1. Minimal prominence of the upper pole calyx on the left is noted and is nonspecific. CT abdomen and pelvis with and without contrast or CT urogram may be helpful for further evaluation of this finding if clinically indicated. Physical Exam: GENERAL: SKIN: Warm and dry. HEAD: Atraumatic. Normocephalic. EYES: Pupils equal and round. No scleral icterus. No injection or drainage. ENT: No nasal bleeding or discharge. Mucous membranes pink and moist. NECK: Trachea midline. No JVD. CARDIOVASCULAR: Regular rate and rhythm. RESPIRATORY: No accessory muscle use. Clear to auscultation. Breath sounds equal bilaterally. GASTROINTESTINAL: Abdomen soft, non-tender, nondistended. Hepatic and splenic margins not palpable. MUSCULOSKELETAL: Extremities without clubbing, cyanosis, or edema. STATUS LOCALIS R hand: + mild to moderate non pitting hand edema, minimal erythema Tenderness to thumb and thenar eminence - mild No fluctuance appreciated NEUROLOGICAL: Awake and alert. No obvious cranial nerve deficits. Motor grossly within normal limits. Five out of 5 muscle strength in the arms and legs. Normal speech. PSYCHIATRIC: Appropriate mood and affect; Assessment and Plan - Plan R hand phlegmone, cellulits aw IV drug injection iproving on empiric abx ELIA ? 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
[2018-10-13] MEDS ORDERED: Pharmacy Ordered Lab Info OTHER ONE (17:45)
[2018-10-13] MEDS: SODIUM CHLOR 0.9% IV.SIG SCH (20:39)
[2018-10-13] MEDS: DAPTOMYCIN IV.SIG SCH (20:39)
[2018-10-14 00:28] LABS: Bilirubin,Urine Negative (Negative); Clarity,Urine Hazy (Clear); Color,Urine Yellow (Yellw/Straw); Glucose,Urine (UA) Negative (Negative); Hyaline Casts,Urine 1 /lpf (0-3); Leukocyte Esterase,Urine Trace (Negative); Nitrite,Urine Negative (Negative); Specific Gravity,Urine 1.009 (1.002-1.035); Squamous Epithelial Cell,Urine 9 /hpf (0-5)
[2018-10-14] MEDS: Sod Chloride 0.9% Inj 1,000 ML IV.CONT SCH ×3 (03:14→10:21)
[2018-10-14 07:21] LABS: Hematocrit 33.6 % (35.0-46.0); Hemoglobin 11.5 gm/dL (11.6-15.3); Mean Corpuscular HGB Conc 34.3 % (32.0-36.0); Mean Corpuscular Volume 96.1 fL (80.0-100.0); Mean Platelet Volume 10.1 fL (7.0-11.0); Platelet Count 124 th/mm3 (150-450); Red Cell Distribution Width 13.5 % (11.6-17.2); White Blood Count 11.7 th/mm3 (4.0-11.0)
[2018-10-14 07:41] LABS: Albumin 1.9 g/dL (3.4-5.0); Carbon Dioxide 20.5 meq/L (21.0-32.0); Potassium 4.2 meq/L (3.5-5.1)
--- NOTE | 2018-10-14 13:06 | P.DS ---
DS: Providers Date of admission: 10/09/18 19:57 Primary care physician: UNKNOWN Consults: 10/10/18 00:28 Consult to Hand Surgery Routine Consulting Provider: Juancarlos Salinas Reason for Consultation: right thumb infection, IVDA Notified:: Service Spoke with:: Daniella Date Notified:: 10/10/18 Time Notified:: 02:00 Ordering Provider: NEGRITO 10/10/18 00:29 Consult to Obstetrics Routine Consulting Provider: Iram Tolliver Reason for Consultation: 33 weeks , IVDA Notified:: Service Spoke with:: Daniella Date Notified:: 10/10/18 Time Notified:: 01:58 Ordering Provider: NEGRITO 10/10/18 10:14 HUB Only Consult Order Routine Consulting Provider: [facility],Insurance 10/10/18 18:54 HUB Only Consult Order Routine Consulting Provider: [facility],Insurance 10/12/18 11:41 Consult to Infectious Diseases Routine Consulting Provider: Jannet Nava Reason for Consultation: Right hand cellulitis. IVDU. 33 weeks. Please assist with antibiotics. Notified:: Service Spoke with:: JED Date Notified:: 10/12/18 Time Notified:: 11:48 Ordering Provider: JIM 10/13/18 08:31 Consult to Nephrology Routine Consulting Provider: Nicole Barrientos Does the patient have a Cosmetic Counselor who follows them?: No Preferred Nephrology Obedience Trainer:: Exhibits Curator Physician Reason for Consultation: ELIA, . Notified:: Service Spoke with:: marcel Date Notified:: 10/13/18 Time Notified:: 08:33 Ordering Provider: JIM Brief History from admission: HISTORY FROM ED PHYSICIAN: 23-year-old female with known , history of IV drug use, depression who presented to hospital because of right hand pain. Patient states that she is undergoing outpatient treatment for drug addiction along with Subutex 8 mg 3 times daily. Patient does have a history of IV heroin use. She has been injecting her Subutex on a daily basis up until 3 days ago when she started developing pain in her right hand which progressively got worse so she came to the emergency department yesterday. Patient was found to have edema , erythema in the injected area and it was recommended by the ER physician the patient be admitted the hospital for further evaluation and management. Patient denies any fever, chills. Patient only complaint is right hand pain. 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 She was told that she would have to go to [place] for the delivery. Patient is currently laying in bed, still the only complaint is the right hand pain. No obvious signs of any withdrawal at this time. OB History: 23 yo at 33 weeks and 2 days who presents to the [facility] as a transfer from [place] ED for hand infection. The patient is an IVDU and shoots up in the right hand predominantly. She last used IV route 3 days ago. She was under the understanding that she was coming to the [facility] for hand surgery. I called the hand surgeon who was consulted in [place], Dr. Salinas, and he reported that he will see the patient, but that surgery was not scheduled. He would like her placed on a medical floor and continued IV antibiotics with vancomycin and zosyn. The patient is feeling baby move. She denies fluid leakage, vaginal bleeding, or contractions. She reports night sweats, chills. Denies chest pain, palpitations, headaches, RUQ pain, vision changes, SOB, LE edema. PMH: Depression PSH: none Medications: lexapro subutex prenatals iron FH: parents are well No family history of anesthesia problems Social History: Has been using illicit drugs since 15yo. She began her use with marijuana. She started using IV heroin about 1.5-2 years ago. She has been on Subutex even before her . She works as does her partner. She denies tobacco or alcohol use. Patient update on day of discharge: Patient reports she is feeling much better. She is able to. Able to close her hand. She is eager to go home. She states she spent the whole night urinating and has been drinking plenty of water. DS: Diagnosis Discharge Diagnosis (1) Acute kidney injury: Status: Acute (2) Infection of right hand: Status: Acute (3) IVDA (intravenous drug abuse) complicating : Status: Acute DS: Summary 23-year-old female current IV drug abuser who is 33 weeks admitted for right hand cellulitis from injection sites. The patient and treatment course detailed below: Right wrist, hand cellulitis -Hand surgery followed the patient and she was treated medically with IV antibiotics including vancomycin initially which was switched to daptomycin due to worsening renal function. She was treated with Zosyn as well. The patient' s condition significantly improved. Fortunately her blood cultures remain negative and this appeared to be a localized infection. Acute kidney injury: Somewhat unexpected as her renal functions has been normal. ? Vancomycin -Vancomycin discontinued as above. Creatinine peaked at 3.05 and trended down to 2.4 by the time of discharge. She is non oliguric with no metabolic disturbance. Case discussed with nephrology Dr. Corona. The patient is advised to follow-up outpatient with PCP for repeat labs. -Urinalysis unremarkable. Leukocytosis -Likely secondary to the above infection. Currently improved and near normal by the time of discharge. : 33 weeks gestational age -Appreciate OB Dr. Tolliver followed the patient throughout the hospitalization. She will follow-up with her outpatient. Polysubstance abuse -Patient is undergoing outpatient management with Subutex -On Subutex. She was extensively counseled. She seems to have better insight since she has been hospitalized. Time Spent with Patient Total time spent providing and/or coordinating discharge services: Less than 30 minutes Quality: VTE Deep Vein Thrombosis/Pulmonary Embolism Present on Admission: No Exam Narrative Exam Narrative: GENERAL: This is a well-nourished, well-developed patient, in no apparent distress. CARDIOVASCULAR: Normal rate and regular rhythm without murmurs, gallops, or rubs. RESPIRATORY: Good respiratory efforts. Breath sounds equal and clear to auscultation bilaterally. GASTROINTESTINAL: Abdomen gravid. Nontender. MUSCULOSKELETAL: Right hand swelling with marked improvement. Better range of motion. Obvious multiple old puncture site over the Palmar aspect of the distal forearm/wrist. Erythema resolved. NEURO: Alert & Oriented x4 to person, place, time, situation. Moves all ext x4 PSYCH: Appropriate mood and affect. Results Labs on day of discharge: Labs from last 24 hours 10/14/18 10/14/18 10/13/18 06:29 06:29 14:20 WBC 11.7 H RBC 3.50 L Hgb 11.5 L Hct 33.6 L MCV 96.1 MCH 33.0 MCHC 34.3 RDW 13.5 Plt Count 124 L MPV 10.1 Sodium 145 Potassium 4.2 Chloride 115 H Carbon Dioxide 20.5 L Anion Gap 10 BUN 29 H Creatinine 2.47 H Estimated GFR 24 L Random Glucose 78 Calcium 8.0 L Phosphorus 4.0 Albumin 1.9 L Urine Color Urine Clarity Urine pH Ur Specific [place] Urine Protein Urine Glucose (UA) Urine Ketones Urine Occult Blood Urine Nitrate Urine Bilirubin Urine Urobilinogen Ur Leukocyte Esterase Urine RBC Urine WBC Ur Squamous Epith Cells Hyaline Casts Micro UA Comment Ur Microscopic Review Urine Culture Comments Urine Osmolality Ur Random Sodium 62 10/13/18 10/13/18 14:20 14:20 WBC RBC Hgb Hct MCV MCH MCHC RDW Plt Count MPV Sodium Potassium Chloride Carbon Dioxide Anion Gap BUN Creatinine Estimated GFR Random Glucose Calcium Phosphorus Albumin Urine Color Yellow Urine Clarity Hazy H Urine pH 6.0 Ur Specific [place] 1.009 Urine Protein Negative Urine Glucose (UA) Negative Urine Ketones Negative Urine Occult Blood Negative Urine Nitrate Negative Urine Bilirubin Negative Urine Urobilinogen Less than 2 Ur Leukocyte Esterase Trace H Urine RBC 2 Urine WBC 6 H Ur Squamous Epith Cells 9 Hyaline Casts 1 Micro UA Comment Culture not ind Ur Microscopic Review Not Reportable Urine Culture Comments Culture not ind Urine Osmolality 256 L Ur Random Sodium Preliminary micro results at discharge 10/10/18 08:55 Aerobic Blood Culture - Preliminary Blood - Peripheral No growth in 4 days Anaerobic Blood Culture - Preliminary No growth in 4 days 10/10/18 08:40 Aerobic Blood Culture - Preliminary Blood - Peripheral No growth in 4 days Anaerobic Blood Culture - Preliminary No growth in 4 days Impressions ITS Impressions Abdomen/Bladder Ultrasound 10/13/18 00:00 CONCLUSION: 1. Minimal prominence of the upper pole calyx on the left is noted and is nonspecific. CT abdomen and pelvis with and without contrast or CT urogram may be helpful for further evaluation of this finding if clinically indicated. Discharge Plan Discharge Disposition Patient Disposition: Discharge Home Discharge Condition Condition: Stable Discharge Order Discharge Orders: Discharge Order (Routine); Ordered 10/14/18 Ordered By: Walter García Physicians Team Primary Care Provider: UNKNOWN, Attending Provider: Walter García Other Providers: Juancarlos Salinas ; Iram Tolliver ; [facility], Insurance ; Jannet Nava ; Nicole Barrientos Rxs /Orders / Referrals /Forms Prescriptions: New amoxicillin-pot clavulanate [Augmentin] 500-125 mg tablet 1 tab PO Q8H Qty: 30 RF: 0 clindamycin HCl 300 mg capsule 300 mg PO QID 10 Days Qty: 40 RF: 0 Continue buprenorphine HCl 8 mg Tablet, Sublingual 8 mg SUBLINGUAL TID RF: 0 ferrous sulfate [iron] 325 mg (65 mg iron) Tablet 325 mg PO HS RF: 0 escitalopram oxalate [Lexapro] 10 mg Tablet 10 mg PO HS RF: 0 [id number] fumarate-FA [] 28-800 mg-mcg Tablet 1 tab PO HS RF: 0 Referrals: Primary Care Physici,No [Family Provider] - See Instructions UNKNOWN, [Primary Care Provider] - See Instructions Status ED Status: Left Department
== END 2018-10-14 18:09 | disposition home or self-care (01) ==
LOC: PHED 16:56 → PHEDH 19:57 → PH3 22:12 → N04 10-10 14:21
PROVIDERS: ADMIT Family Medicine; ATTEND Family Medicine
DX: L03.113 Cellulitis of right upper limb; O99.333 Smoking (tobacco) complicating pregnancy, third trimester; R60.9 Edema, unspecified; Z79.899 Other long term (current) drug therapy; O99.323 Drug use complicating pregnancy, third trimester; N17.9 Acute kidney failure, unspecified; O99.343 Other mental disorders complicating pregnancy, third trimester; Z3A.33 33 weeks gestation of pregnancy; F32.9 Major depressive disorder, single episode, unspecified; O26.833 Pregnancy related renal disease, third trimester; O99.713 Diseases of the skin and subcutaneous tissue complicating pregnancy, third trimester; F19.20 Other psychoactive substance dependence, uncomplicated; F41.9 Anxiety disorder, unspecified; F17.210 Nicotine dependence, cigarettes, uncomplicated

== ENCOUNTER 2018-10-29 21:28 | Inpatient (IN) ==
[~2018-10-29 21:28] MED LIST changes: -DIPH25CA PO; +Diphtheria/Tetanus/Pertussis Vaccine Inj 0.5 ML Syringe IM ONE; +Measles/Mumps/Rubella Vaccine Inj 0.5 ML Vial SQ ONE; -PERM5CRE11 TOPICAL
[2018-10-29] MEDS ORDERED: Penicillin G Potassium Inj 5,000,000 UNIT in Sodium Chloride 0.9% Inj 100 ML IV.SIG ONE (21:48)
[2018-10-29] MEDS ORDERED: Oxytocin 30 Units/500ml Premix 30 UNITS/500 ML BAG IV.SIG ONE (21:48)
[2018-10-29] MEDS ORDERED: Sod Chloride 0.9% Inj 1,000 ML IV.CONT PRN (21:48)
[2018-10-29] MEDS ORDERED: Sodium Chlor 0.9% Inj 500 ML IV.SIG PRN (21:48)
[2018-10-29] MEDS ORDERED: fentaNYL Citrate Inj 100 MCG/2 ML Ampul IV.PUSH PRN ×2 (21:48)
[2018-10-29] MEDS ORDERED: Naloxone Inj 0.4 MG/ML Vial IV.PUSH PRN ×2 (21:48→22:48)
--- NOTE | 2018-10-29 21:57 | ED ---
History of Present Illness Primary Care Physician: Sd Delaney MD Chief Complaint: Contractions History of Present Illness: 23-year-old at 36 weeks final EDC 11/26/2018 presents complaining of contractions. care with care for women Past OB history noncontributory Weeks Gestation:: 36 Para: 0 : 1 - Inpatient Certification I certify that the inpatient services were ordered in accordance with Medicare regulations governing the order. This includes certification that hospital inpatient services are reasonable and necessary and in the case of services not specified as inpatient-only under 42 CFR 419.22(n), that they are appropriately provided as inpatient services in accordance to with the 2-midnight benchmark under 43 CFR 412.3(e) Estimated Total Length of Stay (Days): 2 Plans for Post Hospital Care: Home Review of Systems All other systems reviewed negative except as stated in HPI PMFSH - History History Provided By: Patient - Medical History Medical History: Medical History (Last Reviewed 10/12/18 @ 19:25 by Jannet Nava MD) History of intravenous drug abuse Patient denies medical problems - Surgical History Surgical History: Surgical History (Last Reviewed 10/12/18 @ 19:25 by Jannet Nava MD) No history of previous surgery - Family History Family History: Family History (Last Reviewed 10/12/18 @ 19:25 by Jannet Nava MD) Mother Family history of cancer - Tobacco History Second Hand Smoke Exposure: Yes Smoking Status: Current every day smoker Tobacco Type: Cigarettes Cigarettes Per Day: 0.5 - Alcohol History How Often Do You Have a Drink Containing Alcohol: Never - Substance Use History Substance History: Active Abuse Medications and Allergies Active Medications: Active Medications Citric Acid/Sodium Citrate (Sodium Citrate/Citric Acid Liq) 30 ml PO 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 [facility] Stop: 11/02/18 21:59 Fentanyl Citrate (Fentanyl Inj) 50 mcg IV.PUSH Q1H PRN PRN Reason: Pain Scale 3 - 5 Fentanyl Citrate (Fentanyl Inj) 100 mcg IV.PUSH Q1H PRN PRN Reason: PAIN SCALE 6 TO 10 Lactated Ringer's (Lr 1000 Ml Inj) 1,000 mls @ 3,000 mls/hr IV.SIG UNSCH PRN PRN Reason: compromise or epidural Lactated Ringer's (Lr 1000 Ml Inj) 1,000 mls @ 125 mls/hr IV.CONT .Q8H [facility] Sodium Chloride (Ns Inj) 500 mls @ 1,000 mls/hr IV.SIG UNSCH PRN PRN Reason: SEE LABEL COMMENTS Sodium Chloride (Ns Inj) 1,000 mls @ 100 mls/hr IV.CONT .Q10H PRN PRN Reason: SEE LABEL COMMENTS Oxytocin (Pitocin 30 Units/Ns 500 Ml Premix) 30 units in 500 mls @ 999 mls/hr IV.SIG BOLUS ONE Stop: 10/29/18 22:18 Penicillin G Potassium 5,000, (000 unit/ Sodium Chloride) 100 mls @ 200 mls/hr IV.SIG ONCE ONE Stop: 10/29/18 22:17 Lidocaine HCl (Xylocaine 1% Inj) 0.1 ml I-DERMAL PRN PRN PRN Reason: For IV start Stop: 11/01/18 21:47 Lidocaine HCl (Xylocaine 1% Inj) 10 ml INFILTRATN PRN PRN PRN Reason: For episiotomy repair Stop: 10/31/18 21:47 Mineral Oil (Muri-Lube Oil) 10 ml TOPICAL PRN PRN PRN Reason: PRN perineal massage Naloxone HCl (Narcan Inj) 0.1 mg IV.PUSH Q2M PRN PRN Reason: for opiate reversal Ondansetron HCl (Zofran Inj) 4 mg IV.PUSH Q6H PRN PRN Reason: NAUSEA OR VOMITING Allergies Allergy/AdvReac Type Severity Reaction Status Date / Time No Known Allergies Allergy Verified 10/09/18 17:02 Home Medications Medication Instructions Recorded Confirmed Type [id number] fumarate-FA 1 tab PO HS 10/09/18 10/09/18 History [] buprenorphine HCl 8 mg SUBLINGUAL TID 10/09/18 10/09/18 History escitalopram oxalate [Lexapro] 10 mg PO HS 10/09/18 10/09/18 History ferrous sulfate [iron] 325 mg PO HS 10/09/18 10/09/18 History Exam - Constitutional moderate distress - Routine HEENT Exam Head: Present: normocephalic - Routine Neck Exam Present: supple - Routine Chest/Breast/Axilla Exam Chest wall: Absent: tenderness Breast: Absent: tenderness - Routine Respiratory Exam Absent: accessory muscle use - Routine Cardiovascular Exam Present: RRR - Routine Abdominal Exam Present: soft (Gravid heart rate category 1 contractions by palpation every 2-3-minute) - Routine Exam Comments: Cervical exam 8 cm 100% effaced +1 station membranes intact - Routine Extremities Exam Absent: cyanosis - Routine Neurological Exam Present: alert, oriented X3 Assessment and Plan - Diagnosis (1) labor in third trimester Code(s): O60.03 - labor without delivery, third trimester Status: Acute (2) 36 weeks gestation of Code(s): Z3A.36 - 36 weeks gestation of Status: Acute - Plan Admit labor imminent GBS cultures done however will not be back in time so we will start IV antibiotics for prophylaxis treat as of positive Discharge Plan - Discharge Disposition Patient Disposition: ED Admit(ED Internal Use Only) - Discharge Condition Condition: Stable - Physicians Team ED Provider: Teresa Kelly Primary Care Provider: Sd Delaney
[2018-10-29] MEDS ORDERED: Lidocaine 1% Inj 50 ML Vial ONE (21:58)
[2018-10-29] MEDS ORDERED: Citric Acid/Sodium Citrate Liq 30 ML UDC PO SCH (22:00)
[2018-10-29] MEDS ORDERED: Acetaminophen 325 MG Tablet PO PRN (22:48)
[2018-10-29] MEDS ORDERED: Zolpidem Tartrate 5 MG Tablet PO PRN (22:48)
[2018-10-29] MEDS ORDERED: Oxytocin 30 Units/500ml Premix 30 UNITS/500 ML BAG IV.CONT PRN (22:48)
[2018-10-29] MEDS ORDERED: Benzocaine 20% Top Spray 60 ML Can TOPICAL PRN (22:48)
[2018-10-29] MEDS ORDERED: Bisacodyl 10 MG Supp RECTAL PRN (22:48)
[2018-10-29] MEDS ORDERED: Witch Hazel 50%/Glyderin 12.5% 40 Pad Jar RECTAL PRN (22:48)
[2018-10-29 22:49] LABS: Baso # (Auto) 0.1 th/mm3 (0.0-0.2); Baso % (Auto) 0.7 % (0.0-2.0); Eos % (Auto) 0.1 % (0.0-4.0); Hemoglobin 13.7 gm/dL (11.6-15.3); Lymph # (Auto) 1.9 th/mm3 (1.0-4.8); Lymph % (Auto) 9.8 % (9.0-44.0); Mean Corpuscular HGB Conc 35.2 % (32.0-36.0); Mean Corpuscular Hemoglobin 32.4 pg (27.0-34.0); Mean Corpuscular Volume 91.9 fL (80.0-100.0); Mean Platelet Volume 10.2 fL (7.0-11.0); Mono # (Auto) 0.8 th/mm3 (0.0-0.9); Mono % (Auto) 4.1 % (0.0-8.0); Neut # (Auto) 16.9 th/mm3 (1.8-7.7); Neut % (Auto) 85.3 % (16.0-70.0); Platelet Count 118 th/mm3 (150-450); Red Blood Count 4.24 mil/mm3 (4.00-5.30); Red Cell Distribution Width 12.9 % (11.6-17.2); White Blood Count 19.8 th/mm3 (4.0-11.0)
--- NOTE | 2018-10-29 22:51 | P.OBDELI ---
Weeks Gestation: 36 Patient Started Active Labor: Yes Medical Induction of Labor: No Artificial Rupture of Membrane: Yes Artificial ROM Date: 10/29/18 Artificial ROM Time: 22:23 Anesthesia: None Episiotomy: none Vaginal Delivery: Normal Presentation: Occiput anterior Nuchal Cord: None Delayed Cord Clamping (45 sec): Yes Placenta: Spontaneous delivery, 3 vessel cord, Cord pH Laceration: None Female A Delivery Date: 10/29/18 Infant Delivery Time: 22:38 Weight: 2.205 kg
[2018-10-30 04:36] LABS: Amorphous Sediment,Urine Rare /hpf; Bilirubin,Urine Negative (Negative); Clarity,Urine Clear (Clear); Color,Urine Yellow (Yellw/Straw); Glucose,Urine (UA) Negative (Negative); Leukocyte Esterase,Urine Trace (Negative); Mucus,Urine Few /lpf (Occasional); Nitrite,Urine Negative (Negative); Specific Gravity,Urine 1.017 (1.002-1.035); Squamous Epithelial Cell,Urine <1 /hpf (0-5)
--- NOTE | 2018-10-30 07:19 | P.PNOB ---
Subjective Post day: 1 Interval history: day # 1. AFVSS overnight. Pain well-controlled. Decreased lochia. Denies dysuria. No breast tenderness. She is feeding the baby via breast. Appetite good. No nausea or vomiting. Passing flatus. Already had a bowel movement. Ambulating well. Denies calf pain, shortness of breath, or cough. Otherwise, she is doing well this morning and has no other complaints. Objective Vital Signs/I&O: Vital Signs 10/29/18 21:58 10/29/18 22:00 10/29/18 23:00 Temperature 98.7 F Pulse Rate 89 Respiratory Rate 20 Blood Pressure 134/86 134/76 10/29/18 23:13 10/29/18 23:18 10/29/18 23:30 Temperature Pulse Rate 89 90 89 Respiratory Rate 18 18 Blood Pressure 124/79 116/96 H 10/29/18 23:31 10/29/18 23:32 10/30/18 00:13 Temperature 98.3 F Pulse Rate 81 89 Respiratory Rate 18 18 Blood Pressure 131/75 136/77 Intake & Output 10/29/18 10/30/18 10/30/18 18:59 06:59 18:59 Weight 67.132 kg Result Diagrams: 10/29/18 22:15 Objective Remarks: GENERAL: Well-nourished, well-developed patient. CARDIOVASCULAR: Regular rate and rhythm without murmurs, gallops, or rubs. RESPIRATORY: Breath sounds equal bilaterally. No accessory muscle use. ABDOMEN/GI: Abdomen soft, non-tender. Fundus: Firm, non-tender at umbilicus. GENITOURINARY: Light to moderate bleeding. EXTREMITIES: No cyanosis or edema, non-tender, without signs of DVT. Medications and IVs: Active Medications Acetaminophen (Tylenol) 650 mg PO Q4H PRN PRN Reason: PAIN SCALE 1 TO 2 Al Hydroxide/Mg Hydroxide (Milk Of Magnesia Liq) 30 ml PO Q12H PRN PRN Reason: Mild Constipation Benzocaine (Americaine 20% [place]) 1 spray TOPICAL Q4H PRN PRN Reason: For Perineum Discomfort Last Admin: 10/30/18 03:54 Dose: 1 spray Bisacodyl (Dulcolax Supp) 10 mg RECTAL DAILY PRN PRN Reason: SEVERE CONSITIPATION Oxytocin (Pitocin 30 Units/Ns 500 Ml Premix) 30 units in 500 mls @ 100 mls/hr IV.CONT UNSCH PRN PRN Reason: Heavy bleeding Ibuprofen (Motrin) 800 mg PO Q8H PRN PRN Reason: For Cramping Lactulose (Lactulose Liq) 30 ml PO DAILY PRN PRN Reason: SEVERE CONSITIPATION Naloxone HCl (Narcan Inj) 0.1 mg IV.PUSH Q2M PRN PRN Reason: for opiate reversal Ondansetron HCl (Zofran Odt) 4 mg PO Q6H PRN PRN Reason: NAUSEA OR VOMITING Senna/Docusate Sodium (Delicia-Colace) 1 tab PO BID JACOB Sennosides (Senokot) 17.2 mg PO Q12H PRN PRN Reason: Moderate Constipation Sodium Chloride (Ns Flush) 2 ml IV.FLUSH BID JACOB Sodium Chloride (Ns Flush) 2 ml IV.FLUSH PRN PRN PRN Reason: FLUSH AFTER USING IV ACCESS Witch Leny/Glycerin (Tucks Pads) 1 applicatio RECTAL QID PRN PRN Reason: HEMORRHOIDS Last Admin: 10/30/18 03:54 Dose: 1 applicatio Zolpidem Tartrate (Ambien) 5 mg PO HS PRN PRN Reason: SLEEP Assessment and Plan - Diagnosis (1) Vaginal delivery Code(s): O80 - Encounter for full-term uncomplicated delivery Status: Acute - Plan 23 y/o who is PPD# 1 s/p . -Continue routine care. -Tylenol and Motrin as needed for pain. -Encouraged OOB. Advised pelvic rest for 6 wks. -Will need a f/u appt. within 6 wks. -Contraception: she would like to continue to consider her options. -Anticipate discharge tomorrow History of smoking and suboxone use during -1/2 to 1 PPD smoking history, will order nicotine patch. -Hx of Suboxone use with this , takes 24 mg daily. Confirmed with patient and by E-force. Suboxone 8mg TID ordered. dw OB attending, Dr. Kelly
[2018-10-30] MEDS: Senna/Docusate Sodium 8.6/50 MG Tablet PO SCH ×2 (09:19→20:50)
[2018-10-31] MEDS: Senna/Docusate Sodium 8.6/50 MG Tablet PO SCH (08:09)
[2018-10-31 08:48] VITALS: BP 138/85; PULSE 64; RESP 20; TEMP 97.4
--- NOTE | 2018-10-31 09:01 | P.PNOB ---
Subjective Post day: 2 Interval history: day # 2. AFVSS overnight. Pain well-controlled. Decreased lochia. Denies dysuria. No breast tenderness. She is feeding the baby via breast. Appetite good. No nausea or vomiting. Passing flatus and having bowel movements. ambulating well. Denies calf pain, shortness of breath, or cough. Otherwise, she is doing well this morning and has no other complaints. Objective Vital Signs/I&O: Vital Signs 10/30/18 20:00 10/31/18 08:37 Temperature 98.2 F 97.4 F L Pulse Rate 67 64 Respiratory Rate 18 20 Blood Pressure 134/72 138/85 Result Diagrams: 10/29/18 22:15 Objective Remarks: GENERAL: Well-nourished, well-developed patient. CARDIOVASCULAR: Regular rate and rhythm without murmurs, gallops, or rubs. RESPIRATORY: Breath sounds equal bilaterally. No accessory muscle use. ABDOMEN/GI: Abdomen soft, non-tender. Fundus: Firm, non-tender at umbilicus. GENITOURINARY: Light to moderate bleeding. EXTREMITIES: No cyanosis or edema, non-tender, without signs of DVT. Medications and IVs: Active Medications Acetaminophen (Tylenol) 650 mg PO Q4H PRN PRN Reason: PAIN SCALE 1 TO 2 Al Hydroxide/Mg Hydroxide (Milk Of Magnsheyla Liq) 30 ml PO Q12H PRN PRN Reason: Mild Constipation Benzocaine (Americaine 20% [place]) 1 spray TOPICAL Q4H PRN PRN Reason: For Perineum Discomfort Last Admin: 10/30/18 03:54 Dose: 1 spray Bisacodyl (Dulcolax Supp) 10 mg RECTAL DAILY PRN PRN Reason: SEVERE CONSITIPATION Buprenorphine HCl (Buprenorphine) 8 mg SL TID [facility] Last Admin: 10/31/18 08:08 Dose: 8 mg Oxytocin (Pitocin 30 Units/Ns 500 Ml Premix) 30 units in 500 mls @ 100 mls/hr IV.CONT UNSCH PRN PRN Reason: Heavy bleeding Ibuprofen (Motrin) 800 mg PO Q8H PRN PRN Reason: For Cramping Last Admin: 10/31/18 02:04 Dose: 800 mg Lactulose (Lactulose Liq) 30 ml PO DAILY PRN PRN Reason: SEVERE CONSITIPATION Naloxone HCl (Narcan Inj) 0.1 mg IV.PUSH Q2M PRN PRN Reason: for opiate reversal Nicotine (Habitrol 21 Mg Patch.24 Hr) 1 patch T-DERMAL DAILY [facility] Last Admin: 10/31/18 08:08 Dose: 1 patch Ondansetron HCl (Zofran Odt) 4 mg PO Q6H PRN PRN Reason: NAUSEA OR VOMITING Patch Removal (Remove Old Patch) 1 each T-DERMAL HS [facility] Last Admin: 10/30/18 21:39 Dose: Not Given Senna/Docusate Sodium (Dleicia-Colace) 1 tab PO BID [facility] Last Admin: 10/31/18 08:09 Dose: Not Given Sennosides (Senokot) 17.2 mg PO Q12H PRN PRN Reason: Moderate Constipation Sodium Chloride (Ns Flush) 2 ml IV.FLUSH BID [facility] Last Admin: 10/31/18 08:09 Dose: Not Given Sodium Chloride (Ns Flush) 2 ml IV.FLUSH PRN PRN PRN Reason: FLUSH AFTER USING IV ACCESS Witch Leny/Glycerin (Tucks Pads) 1 applicatio RECTAL QID PRN PRN Reason: HEMORRHOIDS Last Admin: 10/30/18 03:54 Dose: 1 applicatio Zolpidem Tartrate (Ambien) 5 mg PO HS PRN PRN Reason: SLEEP Assessment and Plan - Diagnosis (1) Vaginal delivery Code(s): O80 - Encounter for full-term uncomplicated delivery Status: Acute - Plan 23 y/o who is PPD# 2 s/p . -Continue routine care. -Tylenol and Motrin as needed for pain. -Encouraged OOB. Advised pelvic rest for 6 wks. -Will need a f/u appt. within 6 wks. -Contraception: she would like to continue to consider her options. History of smoking and suboxone use during -1/2 to 1 PPD smoking history, will order nicotine patch. -Hx of Suboxone use with this , takes 24 mg daily. Confirmed with patient and by E-force. Suboxone 8mg TID ordered and patient is taking. -Advise follow-up with primary care for weaning off. Anticipated discharge today
[2018-10-31 11:20] LABS: Rubella IgG Antibody 85.4 IU/mL (10.0-500.0)
== END 2018-10-31 13:37 | disposition home or self-care (01) | DRG 807 ==
LOC: HOBED 21:28 → H2E 21:48 → H1EA 10-30 00:10
PROVIDERS: ADMIT Obstetrics & Gynecology; ATTEND Obstetrics & Gynecology
CPT/HCPCS: 59025; 80307; 81001; 85025; 86762; 86900; 86901; 87086; 88307; 99285; G0481; G0483